=== PATIENT | female | born 1940 | race Caucasian/White ===

== ENCOUNTER 2017-10-12 13:59 | Outpatient (RCR) | payer MEDICARE, SELFPAY ==
[2017-10-12 15:08] LABS: International Normalized Ratio 2.4; Prothrombin Time (Protime)PT. 25.1 SECONDS (11.7-14.9)
== END 2017-10-12 14:15 | disposition home or self-care (01) ==
LOC: LAB 13:59
PROVIDERS: Family Provider Family Medicine; PCP Family Medicine; Visit Provider Internal Medicine Cardiovascular Disease
DX: I48.1 Persistent atrial fibrillation (principal); Z79.01 Long term (current) use of anticoagulants
CPT/HCPCS: 36415; 85610

== ENCOUNTER → 2017-10-26 15:27 | Outpatient (CLI) | payer MEDICARE, SELFPAY ==
--- NOTE | 2017-10-26 15:31 | RAD_ITS ---
STUDY: X-RAY - LEFT WRIST REASON FOR EXAM: Female, 77 years old. Pain TECHNIQUE: Three view(s) of the wrist were obtained. COMPARISON: None. FINDINGS: Bones: There are no acute osseous abnormalities. Joints: There is narrowing of the scapholunate joint. Soft tissues: The soft tissues are unremarkable. Foreign body: None RAD/Wrist min 3 Views IMPRESSION: No acute abnormalities are seen in the wrist. There are mild degenerative changes at the scapholunate joint. Electronically Signed: Katelyn Gastelum MD at 22:35 EST Tel Direct: [phone], Service support ,
[2017-10-26 18:17] LABS: Anion Gap 8 (5-15); BUN 22 mg/dL (7-18); BUN/Creat Ratio 28.9 RATIO (10-20); Chloride 105 mmol/L (98-107); Creatinine, Serum 0.76 mg/dL (0.55-1.02); EST Glomerular Filtration Rate 79 mL/min (>60); Est Glom Filt Rate - Afr Amer 95 mL/min (>60); Glucose 86 mg/dL (70-110); Potassium 3.7 mmol/L (3.5-5.1); Sodium Level 142 mmol/L (136-145)
== END ==
PROVIDERS: Family Provider Family Medicine; PCP Family Medicine; Visit Provider Family Medicine
DX: E87.6 Hypokalemia (principal); M25.532 Pain in left wrist
CPT/HCPCS: 36415; 73110; 80048

== ENCOUNTER 2017-11-20 15:44 | Outpatient (RCR) | payer MEDICARE, SELFPAY ==
[2017-11-20 16:53] LABS: International Normalized Ratio 2.8; Prothrombin Time (Protime)PT. 28.6 SECONDS (11.7-14.9)
== END 2017-11-20 16:00 | disposition home or self-care (01) ==
LOC: LAB 15:44
PROVIDERS: Family Provider Family Medicine; PCP Family Medicine; Visit Provider Internal Medicine Cardiovascular Disease
DX: I48.91 Unspecified atrial fibrillation (principal); Z79.01 Long term (current) use of anticoagulants
CPT/HCPCS: 36415; 85610

== ENCOUNTER → 2017-11-24 08:34 | Outpatient (CLI) | payer MEDICARE, SELFPAY ==
--- NOTE | 2017-11-24 08:40 | US_ITS ---
STUDY: SUPERFICIAL ULTRASOUND - LEFT WRIST REASON FOR EXAM: Female, 77 years old. Ganglion cyst TECHNIQUE: A superficial ultrasound was performed with real-time and static cardoza-scale imaging. COMPARISON: None. FINDINGS: There is a complex multi septated mass measuring 1.9 x 1.7 x 1.3 cm with internal and peripheral vascularity of indeterminate etiology.. This does not have the typical ultrasound appearance for a ganglion cyst. MRI would be helpful for further evaluation US/Ext Non Vasc Limited/Soft Tiss IMPRESSION: Complex mass in the left wrist measuring approximately 1.9 x 1.7 x 1.3 cm Electronically Signed: Jordan Tran MD at 17:08 EST , Service support ,
== END ==
PROVIDERS: Family Provider Family Medicine; PCP Family Medicine; Visit Provider Orthopaedic Surgery
DX: M67.40 Ganglion, unspecified site (principal)
CPT/HCPCS: 76882

== ENCOUNTER → 2017-12-12 13:15 | Outpatient (CLI) | payer MEDICARE, SELFPAY ==
--- NOTE | 2017-12-12 13:17 | MRI_ITS ---
STUDY: MRI LEFT WRIST WITHOUT CONTRAST REASON FOR EXAM: Left wrist pain, lump at skin marker. TECHNIQUE: Standardized fat and water weighted pulse sequences were obtained in all 3 orthogonal planes. COMPARISON: Radiographs 10/26/2017 and ultrasound 11/24/2017. FINDINGS: Normal visualized distal radius and ulna. Normal distal radioulnar articulation (DRUJ). There is a small central perforation of the radial aspect of the triangular fibrocartilage (inversion recovery coronal image 11). There is mild cystic change and bone edema of the proximal ulnar aspect of the lunate (inversion recovery coronal images 9, 10). Normal radiocarpal, intercarpal and midcarpal articulations. Normal pisotriquetral articulation. Normal visualized interosseous scapholunate ligament. Normal extensor tendons. Normal flexor tendons. Normal carpal tunnel with a normal median nerve. Normal carpometacarpal articulation of the thumb. Normal second through fifth carpometacarpal articulations. Normal visualized metacarpal bones. There is no discrete soft tissue mass or cyst corresponding to the skin marker at the palmar aspect of the wrist (T2 sagittal images 9-11; inversion recovery axial images 17-20). 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 No demonstrated soft tissue mass or cyst corresponding to the palmar skin marker. Electronically Signed: Cody Lopes MD at 15:37 EDT Tel , Service support ,
== END ==
PROVIDERS: Family Provider Family Medicine; PCP Family Medicine; Visit Provider Orthopaedic Surgery
DX: R22.32 Localized swelling, mass and lump, left upper limb (principal)
CPT/HCPCS: 73221

== ENCOUNTER 2017-12-25 14:33 | Outpatient (RCR) | payer MEDICARE, SELFPAY ==
[2017-12-25 15:19] LABS: International Normalized Ratio 2.7; Prothrombin Time (Protime)PT. 28.8 SECONDS (11.7-14.9)
== END 2017-12-25 15:00 | disposition home or self-care (01) ==
LOC: LAB 14:33
PROVIDERS: Family Provider Family Medicine; PCP Family Medicine; Visit Provider Internal Medicine Cardiovascular Disease
DX: I48.91 Unspecified atrial fibrillation (principal); Z79.01 Long term (current) use of anticoagulants
CPT/HCPCS: 36415; 85610

== ENCOUNTER 2018-01-29 14:09 | Outpatient (RCR) | payer MEDICARE, SELFPAY ==
[2018-01-29 15:26] LABS: Prothrombin Time (Protime)PT. 40.5 SECONDS (11.7-14.9)
[2018-01-29 17:06] LABS: International Normalized Ratio 4.2
== END 2018-01-29 15:00 | disposition home or self-care (01) ==
LOC: LAB 14:09
PROVIDERS: Family Provider Family Medicine; PCP Family Medicine; Visit Provider Internal Medicine Cardiovascular Disease
DX: I48.91 Unspecified atrial fibrillation (principal); Z79.01 Long term (current) use of anticoagulants
CPT/HCPCS: 36415; 85610

== ENCOUNTER 2018-02-09 16:05 | Outpatient (RCR) | payer MEDICARE, SELFPAY ==
[2018-02-02 14:37] LABS: International Normalized Ratio 1.4; Prothrombin Time (Protime)PT. 17.6 SECONDS (11.7-14.9)
[2018-02-09 17:48] LABS: International Normalized Ratio 1.9; Prothrombin Time (Protime)PT. 22.2 SECONDS (11.7-14.9)
== END 2018-02-09 17:00 | disposition home or self-care (01) ==
LOC: LAB 16:05
PROVIDERS: Family Provider Family Medicine; PCP Family Medicine; Visit Provider Internal Medicine Cardiovascular Disease
DX: I48.91 Unspecified atrial fibrillation (principal); Z79.01 Long term (current) use of anticoagulants
CPT/HCPCS: 36415; 85610

== ENCOUNTER 2018-03-16 13:09 | Outpatient (RCR) | payer MEDICARE, SELFPAY ==
[2018-02-23 13:52] LABS: International Normalized Ratio 2.1; Prothrombin Time (Protime)PT. 23.2 SECONDS (11.7-14.9)
[2018-03-16 13:49] LABS: Prothrombin Time (Protime)PT. 22.7 SECONDS (11.7-14.9)
== END 2018-03-16 14:00 | disposition home or self-care (01) ==
LOC: LAB 13:09
PROVIDERS: Family Provider Family Medicine; PCP Family Medicine; Visit Provider Internal Medicine Cardiovascular Disease
DX: I48.91 Unspecified atrial fibrillation (principal); Z79.01 Long term (current) use of anticoagulants
CPT/HCPCS: 36415; 85610

== ENCOUNTER 2018-04-06 13:17 | Outpatient (RCR) | payer MEDICARE, SELFPAY ==
[2018-04-06 13:48] LABS: International Normalized Ratio 2.4; Prothrombin Time (Protime)PT. 26.5 SECONDS (11.7-14.9)
== END 2018-04-06 15:00 | disposition home or self-care (01) ==
LOC: LAB 13:17
PROVIDERS: Family Provider Family Medicine; PCP Family Medicine; Visit Provider Internal Medicine Cardiovascular Disease
DX: I48.91 Unspecified atrial fibrillation (principal); Z79.01 Long term (current) use of anticoagulants
CPT/HCPCS: 36415; 85610

== ENCOUNTER 2018-05-11 13:37 | Outpatient (RCR) | payer MEDICARE, SELFPAY ==
[2018-05-11 15:01] LABS: International Normalized Ratio 2.3; Prothrombin Time (Protime)PT. 25.5 SECONDS (11.7-14.9)
== END 2018-05-11 15:00 | disposition home or self-care (01) ==
LOC: LAB 13:37
PROVIDERS: Family Provider Family Medicine; PCP Family Medicine; Visit Provider Internal Medicine Cardiovascular Disease
DX: I48.91 Unspecified atrial fibrillation (principal); Z79.01 Long term (current) use of anticoagulants
CPT/HCPCS: 36415; 85610

== ENCOUNTER → 2018-06-14 14:30 | Outpatient (CLI) | payer MEDICARE, SELFPAY ==
--- NOTE | 2018-06-14 14:35 | RAD_ITS ---
STUDY: X-RAY CHEST REASON FOR EXAM: Female, 78 years old. Chest pain TECHNIQUE: PA and lateral views of the chest. COMPARISON: None. FINDINGS: There is hyperinflation of the lungs consistent with chronic obstructive lung disease (COPD). Lungs are clear. There is no demonstrated pleural abnormality. There is borderline cardiomegaly. Normal mediastinum and rudy. Normal visualized pulmonary arteries. Normal visualized aortic arch and descending thoracic aorta. Normal visualized thoracic spine. Normal visualized ribs, clavicles, and shoulders. There is no demonstrated abnormality of the visualized soft tissue structures of the upper abdomen. RAD/Chest PA and Lateral IMPRESSION: COPD. Borderline cardiomegaly. No acute airspace disease. Electronically Signed: Krishna Arce DO at 12:00 EDT Tel , Service support ,
== END ==
PROVIDERS: Family Provider Family Medicine; PCP Family Medicine; Visit Provider Internal Medicine Cardiovascular Disease
DX: I10 Essential (primary) hypertension (principal)
CPT/HCPCS: 71046

== ENCOUNTER 2018-06-14 14:54 | Outpatient (RCR) | payer MEDICARE, SELFPAY ==
[2018-06-14 15:45] LABS: International Normalized Ratio 2.5; Prothrombin Time (Protime)PT. 27.4 SECONDS (11.7-14.9)
== END 2018-06-14 16:00 | disposition home or self-care (01) ==
LOC: LAB 14:54
PROVIDERS: Family Provider Family Medicine; PCP Family Medicine; Visit Provider Internal Medicine Cardiovascular Disease
DX: I48.91 Unspecified atrial fibrillation (principal); Z79.01 Long term (current) use of anticoagulants; I10 Essential (primary) hypertension
CPT/HCPCS: 36415; 71046; 85610

== ENCOUNTER → 2018-06-20 13:46 | Outpatient (CLI) | payer MEDICARE, SELFPAY ==
--- NOTE | 2018-06-20 13:52 | ECHOD_ITS ---
Reason For Study: Afib, Aflutter Procedure This was a 2D Doppler, Color Flow transthoracic echocardiogram. Exam performed in department. Left Ventricle Normal LV size. Left ventricular systolic function is normal. The estimated ejection fraction is 60 %. Unable to assess diastolic dysfunction due to arrhythmia. No regional wall motion abnormalities noted. Right Ventricle Normal RV size. Normal systolic function. Atria The left atrium is moderately enlarged. Normal right atrium. Mitral Valve Normal mitral valve. Mild (1+) eccentric mitral valve insufficiency. Tricuspid Valve Normal tricuspid valve. Mild to moderate (1-2+) tricuspid valve insufficiency. Pulmonary artery systolic pressure is 48 mmHg. Aortic Valve Trisinus/trileaflet aortic valve. Mild (1+) eccentric aortic valve insufficiency. Pulmonic Valve Normal pulmonic valve. Great Vessels Mildly dilated aortic root. The pulmonary artery is normal size. Normal inferior vena cava. Pericardium/Pleural No pericardial effusion. MMode/2D Measurements & Calculations LVIDd: 4.2 cm IVSd: 1.1 cm Ao root diam: 3.4 cm LVIDs: 3.0 cm LVPWd: 0.85 cm LA dimension: 4.1 cm RVDd: 3.2 cm FS: 28.7 % LAV(MOD-bp): 62.0 ml LVAd ap4: 23.7 cm2 SV(MOD-sp4): 37.8 ml LAV(MOD-bp) Indexed: 34.2 ml/m2 EDV(MOD-sp4): 64.1 ml LAV(MOD-sp2): 77.4 ml EDV(sp4-el): 64.9 ml LAV(MOD-sp4): 43.2 ml LVAs ap4: 13.8 cm2 ESV(MOD-sp4): 26.3 ml ESV(sp4-el): 24.9 ml EF(MOD-sp4): 58.9 % EF(sp4-el): 61.6 % SV(sp4-el): 40.0 ml LA A4 area: 18.5 cm2 RA A4 area: 26.2 cm2 Doppler Measurements & Calculations MV E max chemo: 84.0 cm/sec Ao V2 max: 102.2 cm/sec AI max chemo: 429.1 cm/sec Ao max P.2 mmHg AI max P.6 mmHg Ao V2 mean: 78.7 cm/sec AI dec slope: 156.1 cm/sec2 Ao mean P.7 mmHg AI P1/2t: 805.1 msec Ao V2 VTI: 21.4 cm LV V1 max: 81.4 cm/sec PA V2 max: 78.3 cm/sec TR max chemo: 331.6 cm/sec LV V1 max P.7 mmHg TR max P.0 mmHg Interpretation Summary Normal LV size. Left ventricular systolic function is normal. The estimated ejection fraction is 60 %. Unable to assess diastolic dysfunction due to arrhythmia. The left atrium is moderately enlarged. Mildly dilated aortic root. Mild (1+) eccentric mitral valve insufficiency. Mild to moderate (1-2+) tricuspid valve insufficiency. Ordering Physician: Jef Whaley Referring Physician: Gabino Reyes Performed By: Janelle Whalen RDCS, RVT
== END ==
PROVIDERS: Family Provider Family Medicine; PCP Family Medicine; Referring Provider Internal Medicine Cardiovascular Disease; Visit Provider Internal Medicine Cardiovascular Disease
DX: I34.0 Nonrheumatic mitral (valve) insufficiency (principal)
CPT/HCPCS: 93306

== ENCOUNTER 2018-07-19 15:33 | Outpatient (RCR) | payer MEDICARE, SELFPAY ==
[2018-07-19 17:47] LABS: International Normalized Ratio 2.4; Prothrombin Time (Protime)PT. 26.5 SECONDS (11.7-14.9)
== END 2018-07-19 17:00 | disposition home or self-care (01) ==
LOC: LAB 15:33
PROVIDERS: Family Provider Family Medicine; PCP Family Medicine; Referring Provider Internal Medicine Cardiovascular Disease; Visit Provider Internal Medicine Cardiovascular Disease
DX: I48.91 Unspecified atrial fibrillation (principal); Z79.01 Long term (current) use of anticoagulants
CPT/HCPCS: 36415; 85610

== ENCOUNTER 2018-08-31 13:21 | Outpatient (RCR) | payer MEDICARE, SELFPAY | END 2018-08-31 14:00 | disposition home or self-care (01) | LOC: LAB 13:21 | PROVIDERS: Family Provider Family Medicine; PCP Family Medicine; Referring Provider Internal Medicine Cardiovascular Disease; Visit Provider Internal Medicine Cardiovascular Disease | DX: I48.91 Unspecified atrial fibrillation (principal); Z79.01 Long term (current) use of anticoagulants | CPT/HCPCS: 36415; 85610 ==

== ENCOUNTER 2018-10-05 14:58 | Outpatient (RCR) | payer MEDICARE, SELFPAY ==
[2018-10-05 17:22] LABS: Prothrombin Time (Protime)PT. 22.8 SECONDS (11.7-14.9)
== END 2018-10-05 15:00 | disposition home or self-care (01) ==
LOC: LAB 14:58
PROVIDERS: Family Provider Family Medicine; PCP Family Medicine; Referring Provider Internal Medicine Cardiovascular Disease; Visit Provider Internal Medicine Cardiovascular Disease
DX: I48.91 Unspecified atrial fibrillation (principal); Z79.01 Long term (current) use of anticoagulants
CPT/HCPCS: 36415; 85610

== ENCOUNTER 2018-11-16 15:21 | Outpatient (RCR) | payer MEDICARE, SELFPAY ==
[2018-11-16 16:14] LABS: International Normalized Ratio 2.2; Prothrombin Time (Protime)PT. 24.4 SECONDS (11.7-14.9)
== END 2018-11-22 14:48 | disposition home or self-care (01) ==
LOC: LAB 15:21
PROVIDERS: Family Provider Family Medicine; PCP Family Medicine; Referring Provider Internal Medicine Cardiovascular Disease; Visit Provider Internal Medicine Cardiovascular Disease
DX: I48.91 Unspecified atrial fibrillation (principal); Z79.01 Long term (current) use of anticoagulants
CPT/HCPCS: 36415; 85610

== ENCOUNTER 2018-12-18 11:00 | Outpatient (RCR) | payer MEDICARE, SELFPAY ==
[2018-12-18 10:24] VITALS: BMI 28.6
[2018-12-18 12:33] LABS: International Normalized Ratio 2.1; Prothrombin Time (Protime)PT. 23.8 SECONDS (11.7-14.9)
== END 2018-12-18 12:00 | disposition home or self-care (01) ==
LOC: LAB 11:00
PROVIDERS: Family Provider Family Medicine; PCP Family Medicine; Referring Provider Internal Medicine Cardiovascular Disease; Visit Provider Internal Medicine Cardiovascular Disease
DX: I48.91 Unspecified atrial fibrillation (principal); Z79.01 Long term (current) use of anticoagulants
CPT/HCPCS: 36415; 85610

== ENCOUNTER 2019-01-25 13:41 | Outpatient (RCR) | payer MEDICARE, SELFPAY ==
[2019-01-25 14:15] LABS: International Normalized Ratio 2.5; Prothrombin Time (Protime)PT. 27.2 SECONDS (11.7-14.9)
== END 2019-01-25 14:41 | disposition home or self-care (01) ==
LOC: LAB 13:41
PROVIDERS: Family Provider Family Medicine; PCP Family Medicine; Referring Provider Internal Medicine Cardiovascular Disease; Visit Provider Internal Medicine Cardiovascular Disease
DX: I48.91 Unspecified atrial fibrillation (principal); Z79.01 Long term (current) use of anticoagulants
CPT/HCPCS: 36415; 85610

== ENCOUNTER → 2019-02-07 | Outpatient (CLI) | payer MEDICARE, SELFPAY ==
[2019-02-07 15:04] LABS: ALB/GLOB Ratio 1.2 RATIO (0.9-2.4); AST(SGOT) 36 U/L (15-37); Alanine Aminotransfer ALT/SGPT 25 U/L (13-56); Albumin, Serum 3.9 g/dL (3.2-5.0); Alkaline Phosphatase 96 U/L (45-117); Anion Gap 7 (5-15); BUN 22 mg/dL (7-18); BUN/Creat Ratio 23.5 RATIO (10-20); Calcium,Total 8.8 mg/dL (8.5-10.1); Chloride 103 mmol/L (98-107); Creatinine, Serum 0.94 mg/dL (0.55-1.02); EST Glomerular Filtration Rate 62 mL/min (>60); Est Glom Filt Rate - Afr Amer 75 mL/min (>60); Globulin 3.3 g/dL (2.2-4.2); Glucose 78 mg/dL (74-106); Potassium 4.2 mmol/L (3.5-5.1); Protein, Total 7.2 g/dL (6.4-8.2); Sodium Level 140 mmol/L (136-145)
== END | disposition home or self-care (01) ==
LOC: MFPLAB 12:24
PROVIDERS: Family Provider Family Medicine; PCP Family Medicine; Referring Provider Family Medicine; Visit Provider Family Medicine
DX: B35.1 Tinea unguium (principal)
CPT/HCPCS: 36415; 80053

== ENCOUNTER 2019-03-07 16:22 | Outpatient (RCR) | payer MEDICARE, SELFPAY ==
[2019-03-07 17:23] LABS: International Normalized Ratio 2.1; Prothrombin Time (Protime)PT. 23.6 SECONDS (11.7-14.9)
== END 2019-03-07 17:00 | disposition home or self-care (01) ==
LOC: LAB 16:22
PROVIDERS: Family Provider Family Medicine; PCP Family Medicine; Referring Provider Internal Medicine Cardiovascular Disease; Visit Provider Internal Medicine Cardiovascular Disease
DX: I48.91 Unspecified atrial fibrillation (principal); Z79.01 Long term (current) use of anticoagulants
CPT/HCPCS: 36415; 85610

== ENCOUNTER 2019-04-18 14:36 | Outpatient (RCR) | payer MEDICARE, SELFPAY ==
[2019-04-18 16:15] LABS: Prothrombin Time (Protime)PT. 31.2 SECONDS (11.7-14.9)
== END 2019-04-18 16:21 | disposition home or self-care (01) ==
LOC: LAB 14:36
PROVIDERS: Family Provider Family Medicine; PCP Family Medicine; Referring Provider Internal Medicine Cardiovascular Disease; Visit Provider Internal Medicine Cardiovascular Disease
DX: I48.91 Unspecified atrial fibrillation (principal); Z79.01 Long term (current) use of anticoagulants
CPT/HCPCS: 36415; 85610

== ENCOUNTER 2019-05-23 15:46 | Outpatient (RCR) | payer MEDICARE, SELFPAY ==
[2019-05-23 17:17] LABS: International Normalized Ratio 2.6; Prothrombin Time (Protime)PT. 28.2 SECONDS (11.7-14.9)
== END 2019-05-23 17:00 | disposition home or self-care (01) ==
LOC: LAB 15:46
PROVIDERS: Family Provider Family Medicine; PCP Family Medicine; Referring Provider Internal Medicine Cardiovascular Disease; Visit Provider Internal Medicine Cardiovascular Disease
DX: I48.91 Unspecified atrial fibrillation (principal); Z79.01 Long term (current) use of anticoagulants
CPT/HCPCS: 36415; 85610

== ENCOUNTER 2019-06-27 14:39 | Outpatient (RCR) | payer MEDICARE, SELFPAY ==
[2019-06-27 16:27] LABS: International Normalized Ratio 2.5; Prothrombin Time (Protime)PT. 27.4 SECONDS (11.7-14.9)
== END 2019-06-27 18:00 | disposition home or self-care (01) ==
LOC: LAB 14:39
PROVIDERS: Family Provider Family Medicine; PCP Family Medicine; Referring Provider Internal Medicine Cardiovascular Disease; Visit Provider Internal Medicine Cardiovascular Disease
DX: I48.91 Unspecified atrial fibrillation (principal); Z79.01 Long term (current) use of anticoagulants
CPT/HCPCS: 36415; 85610

== ENCOUNTER 2019-08-09 14:04 | Outpatient (RCR) | payer MEDICARE, SELFPAY ==
[2019-07-26 13:16] VITALS: BMI 28.6
[2019-08-09 14:45] LABS: International Normalized Ratio 2.4; Prothrombin Time (Protime)PT. 26.1 SECONDS (11.7-14.9)
== END 2019-08-09 18:00 | disposition home or self-care (01) ==
LOC: LAB 14:04
PROVIDERS: Family Provider Family Medicine; PCP Family Medicine; Referring Provider Internal Medicine Cardiovascular Disease; Visit Provider Internal Medicine Cardiovascular Disease
DX: I48.91 Unspecified atrial fibrillation (principal); Z79.01 Long term (current) use of anticoagulants
CPT/HCPCS: 36415; 85610

== ENCOUNTER → 2019-08-28 15:14 | Outpatient (CLI) | payer MEDICARE, SELFPAY ==
[2019-07-26 13:16] VITALS: BMI 28.6
== END ==
PROVIDERS: Visit Provider Obstetrics & Gynecology
DX: N76.4 Abscess of vulva (principal)
CPT/HCPCS: 87070; 87077; 87186; 87205

== ENCOUNTER 2019-09-23 14:29 | Outpatient (RCR) | payer MEDICARE, SELFPAY ==
[2019-07-26 13:16] VITALS: BMI 28.6
[2019-09-23 16:35] LABS: International Normalized Ratio 1.9; Prothrombin Time (Protime)PT. 21.6 SECONDS (11.7-14.9)
== END 2019-09-23 18:00 | disposition home or self-care (01) ==
LOC: LAB 14:29
PROVIDERS: Family Provider Family Medicine; PCP Family Medicine; Referring Provider Internal Medicine Cardiovascular Disease; Visit Provider Internal Medicine Cardiovascular Disease
DX: I48.91 Unspecified atrial fibrillation (principal); Z79.01 Long term (current) use of anticoagulants
CPT/HCPCS: 36415; 85610

== ENCOUNTER 2019-10-16 15:11 | Outpatient (RCR) | payer MEDICARE, SELFPAY ==
[2019-07-26 13:16] VITALS: BMI 28.6
[2019-10-16 16:53] LABS: International Normalized Ratio 1.9; Prothrombin Time (Protime)PT. 21.4 SECONDS (11.7-14.9)
== END 2019-10-16 18:00 | disposition home or self-care (01) ==
LOC: LAB 15:11
PROVIDERS: Family Provider Family Medicine; PCP Family Medicine; Referring Provider Internal Medicine Cardiovascular Disease; Visit Provider Internal Medicine Cardiovascular Disease
DX: I48.91 Unspecified atrial fibrillation (principal); Z79.01 Long term (current) use of anticoagulants
CPT/HCPCS: 36415; 85610

== ENCOUNTER 2019-11-15 14:22 | Outpatient (RCR) | payer MEDICARE, SELFPAY ==
[2019-07-26 13:16] VITALS: BMI 28.6
[2019-11-15 14:40] LABS: Prothrombin Time (Protime)PT. 22.2 SECONDS (11.7-14.9)
== END 2019-11-15 18:00 | disposition home or self-care (01) ==
LOC: LAB 14:22
PROVIDERS: Family Provider Family Medicine; PCP Family Medicine; Referring Provider Internal Medicine Cardiovascular Disease; Visit Provider Internal Medicine Cardiovascular Disease
DX: I48.91 Unspecified atrial fibrillation (principal); Z79.01 Long term (current) use of anticoagulants
CPT/HCPCS: 36415; 85610

== ENCOUNTER 2019-12-20 14:46 | Outpatient (RCR) | payer MEDICARE, SELFPAY ==
[2019-07-26 13:16] VITALS: BMI 28.6
[2019-12-20 16:13] LABS: International Normalized Ratio 2.1; Prothrombin Time (Protime)PT. 23.8 SECONDS (11.7-14.9)
== END 2019-12-20 18:00 | disposition home or self-care (01) ==
LOC: LAB 14:46
PROVIDERS: Family Provider Family Medicine; PCP Family Medicine; Referring Provider Internal Medicine Cardiovascular Disease; Visit Provider Internal Medicine Cardiovascular Disease
DX: I48.91 Unspecified atrial fibrillation (principal); Z79.01 Long term (current) use of anticoagulants
CPT/HCPCS: 36415; 85610

== ENCOUNTER 2020-01-23 15:57 | Outpatient (RCR) | payer MEDICARE, SELFPAY ==
[2019-07-26 13:16] VITALS: BMI 28.6
[2020-01-23 17:38] LABS: International Normalized Ratio 2.4; Prothrombin Time (Protime)PT. 25.3 SECONDS (11.7-14.9)
== END 2020-01-23 18:00 | disposition home or self-care (01) ==
LOC: LAB 15:57
PROVIDERS: Family Provider Family Medicine; PCP Family Medicine; Referring Provider Internal Medicine Cardiovascular Disease; Visit Provider Internal Medicine Cardiovascular Disease
DX: I48.91 Unspecified atrial fibrillation (principal); Z79.01 Long term (current) use of anticoagulants
CPT/HCPCS: 36415; 85610

== ENCOUNTER 2020-02-28 16:04 | Outpatient (RCR) | payer MEDICARE, SELFPAY ==
[2019-07-26 13:16] VITALS: BMI 28.6
[2020-02-04 12:44] VITALS: BMI 29.1
[2020-02-28 17:29] LABS: International Normalized Ratio 2.4; Prothrombin Time (Protime)PT. 25.3 SECONDS (11.7-14.9)
== END 2020-02-28 18:00 | disposition home or self-care (01) ==
LOC: LAB 16:04
PROVIDERS: Family Provider Family Medicine; PCP Family Medicine; Referring Provider Internal Medicine Cardiovascular Disease; Visit Provider Internal Medicine Cardiovascular Disease
DX: I48.19 Other persistent atrial fibrillation (principal); Z79.01 Long term (current) use of anticoagulants
CPT/HCPCS: 85610

== ENCOUNTER 2020-04-02 15:44 | Outpatient (RCR) | payer MEDICARE, SELFPAY ==
[2020-02-04 12:44] VITALS: BMI 29.1
[2020-04-02 16:41] LABS: International Normalized Ratio 2.3; Prothrombin Time (Protime)PT. 24.5 SECONDS (11.7-14.9)
== END 2020-04-02 18:00 | disposition home or self-care (01) ==
LOC: LAB 15:44
PROVIDERS: Family Provider Family Medicine; PCP Family Medicine; Referring Provider Internal Medicine Cardiovascular Disease; Visit Provider Internal Medicine Cardiovascular Disease
DX: I48.19 Other persistent atrial fibrillation (principal); Z79.01 Long term (current) use of anticoagulants
CPT/HCPCS: 36415; 85610

== ENCOUNTER 2020-05-15 15:29 | Outpatient (RCR) | payer MEDICARE, SELFPAY ==
[2020-02-04 12:44] VITALS: BMI 29.1
[2020-05-15 16:23] LABS: International Normalized Ratio 3.3; Prothrombin Time (Protime)PT. 32.9 SECONDS (11.7-14.9)
== END 2020-05-25 18:00 | disposition home or self-care (01) ==
LOC: LAB 15:29
PROVIDERS: Family Provider Family Medicine; PCP Family Medicine; Referring Provider Internal Medicine Cardiovascular Disease; Visit Provider Internal Medicine Cardiovascular Disease
DX: I48.19 Other persistent atrial fibrillation (principal); Z79.01 Long term (current) use of anticoagulants; I10 Essential (primary) hypertension
CPT/HCPCS: 36415; 85610

== ENCOUNTER 2020-05-24 09:32 | Emergency (ER) | payer MEDICARE, SELFPAY ==
[2020-02-04 12:44] VITALS: BMI 29.1
[2020-05-24] VITALS (9 sets, daily range): BP systolic 157–177; BP diastolic 80–109; PULSE 70–90; RESP 15–20; TEMP 36; O2SAT 97–99; BMI 31.6
--- NOTE | 2020-05-24 09:35 | CT_ITS ---
STUDY: CT BRAIN WITHOUT CONTRAST REASON FOR EXAM: Female, 80 years old. FACIAL DROOP-LT SIDE, AFIB ON COUMADIN, CHF, HTN RADIATION DOSAGE (If Supplied By Facility): CTDIvol = ( 44.99 ) mGy, DLP = ( 779.24 ) mGycm TECHNIQUE: Transaxial CT imaging of the brain was performed without administration of intravenous contrast material. Individualized dose optimization techniques were used for this CT. COMPARISON: No relevant priors. FINDINGS: Normal soft tissue structures. Normal calvarium. Normal size ventricles and extra-axial spaces for the patient''s age. Normal white matter tracts of the cerebral hemispheres. Normal basal ganglia and thalami. Normal brainstem. Normal cerebellum. There is no intracranial hemorrhage. There are no findings of an acute ischemic infarction. Normal visualized paranasal sinuses. CT/Brain/Head without Contrast IMPRESSION: No evidence of acute intracranial bleed, mass or ischemia. If high clinical suspicion recommend MRI imaging to exclude occult CT findings. N.B. : The above information has been verbally conveyed by Vinay Cullen DO to Dr. Kassandra MD, on 05/24/2020 10:12:52 (ET). Electronically Signed: Vinay Cullen DO at 10:14 EDT , Service support ,
--- NOTE | 2020-05-24 09:35 | EKG12_ITS ---
Test Reason : NEURO Blood Pressure : / mmHG Vent. Rate : 086 BPM Atrial Rate : 250 BPM P-R Int : 000 ms QRS Dur : 098 ms QT Int : 408 ms P-R-T Axes : 000 -17 024 degrees QTc Int : 488 ms Atrial fibrillation Incomplete right bundle branch block Abnormal ECG Confirmed by JENNI DESIR, HUMBERTO ([id number]), metropolitan editor NILTON YU ([id number]) on 05/28/2020 11:32:14 AM Referred By: CL Confirmed By:HUMBERTO ARTEAGA MD
--- NOTE | 2020-05-24 09:35 | RAD_ITS ---
STUDY: X-RAY CHEST REASON FOR EXAM: Female, 80 years old. STROKE SX TECHNIQUE: Single AP portable view of the chest. COMPARISON: 06/14/2018 FINDINGS: The lungs are clear and expanded. There is no demonstrated pleural abnormality. There is moderate cardiac enlargement. Normal mediastinum and rudy. Normal visualized pulmonary arteries. Normal visualized aortic arch and descending thoracic aorta. Normal visualized thoracic spine. Normal visualized ribs, clavicles, and shoulders. There is no demonstrated abnormality of the visualized soft tissue structures of the upper abdomen. RAD/Chest 1 View IMPRESSION: No active disease. Electronically Signed: Pedro Velázquez MD at 10:35 EDT Tel , Service support ,
--- NOTE | 2020-05-24 09:36 | CT_ITS ---
We are attempting to reach an attending provider to discuss findings. An addendum with communication details will be sent when the communication is complete. STUDY: CTA HEAD AND NECK WITH CONTRAST REASON FOR EXAM: Female, 80 years old. CVA SUSPECTED, LT FACIAL DROOP,N/T,HX- HTN, CHF, A-FIB RADIATION DOSAGE (If Supplied By Facility): CTDIvol = ( 24.68 ) mGy, DLP = ( 573.98 ) mGycm TECHNIQUE: CT angiography was performed with a multi-detector CT scanner. Data acquisition was obtained from the skull base through the vertex following intravenous administration of IV 100mL [id number]-[id number]. MIP images were reconstructed from the axial data set. Post-processing of the angiographic images was performed, with multiplanar reformation and 3D reconstruction. Individualized dose optimization techniques were used for this CT. COMPARISON: No relevant priors. FINDINGS: Normal bilateral petrous carotid arteries. Normal right cavernous carotid artery with a normal supraclinoid bifurcation. Normal left cavernous carotid artery with a normal supraclinoid bifurcation. There is hypoplastic development of the right A1 segment of the anterior cerebral arteries with an atretic but intact artery. Normal left A1 segments of the anterior cerebral artery. There is non-visualization of the anterior communicating artery (ACOM). Hypoplastic remainder of the right anterior cerebral artery. Normal right M1 and M2 segments of the middle cerebral arteries, with a normal M1 bifurcation. Normal left M1 and M2 segments of the middle cerebral arteries, with a normal M1 bifurcation. Normal right posterior communicating artery (PCOM). Normal left posterior communicating artery (PCOM). There is a small atretic right vertebral artery with a dominant left vertebral artery. Normal basilar artery with a normal basilar bifurcation. The visualized bilateral superior cerebellar (SCA) arteries are normal. Normal bilateral P1, P2 and visualized P3 segments of the posterior cerebral arteries. There is no demonstrated aneurysm of the alutiiq of [place]. There is no demonstrated abnormality of the visualized brain. AORTIC ARCH: Normal visualized aortic arch. Normal origins of the brachiocephalic, left common carotid, and left subclavian arteries. RIGHT CAROTID ARTERIES: Normal right common carotid artery (CCA). Normal right common carotid bulb. Normal origin of the right internal carotid (ICA) artery without a hemodynamically significant stenosis. Normal visualized cervical portion of the right internal carotid artery. Normal origin of the right external carotid artery (ECA). LEFT CAROTID ARTERIES: Normal left common carotid artery (CCA). Normal left common carotid bulb. Normal origin of the left internal carotid (ICA) artery without a hemodynamically significant stenosis. Normal visualized cervical portion of the left internal carotid artery. Normal origin of the left external carotid artery (ECA). VERTEBRAL ARTERIES: There is enhancement within the bilateral vertebral arteries with a small right vertebral artery, and a dominant left vertebral artery. CT/CTA Head AND Neck W/ Contrast IMPRESSION: Normal CTA Head and neck with contrast. Electronically Signed: Pedro Velázquez MD at 10:28 EDT Tel , Service support ,
[2020-05-24 09:48] LABS: Absolute Neutrophil Count 3.4 X10^3/uL (2.0-7.7); Basophil# 0.08 X10^3/uL; Basophil% 1.4 % (0-1); Eosinophil# 0.14 X10^3/uL; Eosinophils% 2.4 % (0-5); Hematocrit 49.5 % (37-47); Hemoglobin 15.7 g/dL (12.0-15.0); Lymphocyte % 23.9 % (19-41); Mean Corp Hgb Conc 31.7 g/dL (32-36); Mean Corpuscular Hgb 30.1 pg (27.0-32.0); Mean Corpuscular Volume 94.8 fL (81-99); Mean Platelet Vol. 9.1 fl (6.2-12.0); Monocyte# 0.85 X10^3/uL; Monocyte% 14.5 % (0-10); NRBC Flagged by Analyzer 0 % (0-5); Neutrophil # 3.39 X10^3/uL (2.7-7.7); Neutrophil % 57.8 % (47-70); Platelet Count 171 K/mm3 (150-450); RBC Distribution Width CV 12.8 % (11.6-14.6); RBC Distribution Width SD 44.7 fl (35.1-43.9); Red Blood Count 5.22 M/mm3 (4.2-5.4); White Blood Count 5.9 K/mm3 (4.4-11.0)
[2020-05-24 09:57] LABS: International Normalized Ratio 1.9; Partial Thromboplast Time 34.2 Seconds (24.1-36.2); Prothrombin Time (Protime)PT. 21.4 SECONDS (11.7-14.9)
[2020-05-24 10:04] LABS: Anion Gap 5 (5-15); BUN 24 mg/dL (7-18); BUN/Creat Ratio 25.9 RATIO (10-20); Calcium,Total 8.9 mg/dL (8.5-10.1); Chloride 106 mmol/L (98-107); Creatinine, Serum 0.93 mg/dL (0.55-1.02); EST Glomerular Filtration Rate 62 mL/min (>60); Est Glom Filt Rate - Afr Amer 75 mL/min (>60); Estimated Creatinine Clearance 44.86 ml/min; Glucose 79 mg/dL (74-106); Potassium 3.1 mmol/L (3.5-5.1); Sodium Level 142 mmol/L (136-145)
--- NOTE | 2020-05-24 10:18 | ED.RN ---
1005 Awaiting [facility] MD after pt returned from CT and 2nd call placed by RN
--- NOTE | 2020-05-24 10:46 | MRI_ITS ---
STUDY: MRI BRAIN WITHOUT CONTRAST REASON FOR EXAM: Female, 80 years old. LEFT facial droop this morning, Hx of a-fib TECHNIQUE: Standardized multiplanar fat and water weighted pulse sequences were obtained. COMPARISON: None. FINDINGS: There is mild cerebral atrophy with widening of the extra-axial spaces and ventricular dilatation. There are a limited number of small white matter hyperintensities, distributed throughout the deep white matter tracts of the cerebral hemispheres, consistent with mild chronic white matter ischemic changes. There is no evidence for recent intracranial ischemia or other cause of cytotoxic edema on diffusion weighted imaging (DWI). Normal T2* images of the brain without demonstrated susceptibility artifact. There is no demonstrated hemosiderin stain. Normal bilateral basal ganglia. Normal thalami. There is no extra-axial fluid accumulation. Normal flow voids within the major intracranial circulation suggesting patency by spin echo criteria. Normal sella turcica, pituitary gland, infundibular stalk, optic chiasm and hypothalamus. Normal tectal plate and pineal gland. Normal midbrain, genaro and medulla. Normal cerebellum. Normal basal cisterns. 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 Normal bilateral internal auditory canals. There are bilateral ocular lens implants with otherwise normal intraorbital contents. Normal visualized paranasal sinuses. Normal calvarium and skull base. Normal visualized soft tissue structures. Normal visualized upper cervical spine. MRI/Brain without Contrast IMPRESSION: Involutional changes of the brain, as described above. No acute infarct. Electronically Signed: Pedro Velázquez MD at 12:49 EDT Tel , Service support ,
[2020-05-24] MEDS: Aspirin 81 MG TAB.CHEW 324 MG PO (10:52)
--- NOTE | 2020-05-24 12:08 | ED.DCSUM_ITS ---
History of Present Illness Chief Complaint: Neuro S/Sx Informant: Patient Narrative: 80-year-old female with past medical history of atrial fibrillation and hypertension presents with concern for left-sided facial droop. States that approximately 10 hours ago she was brushing her teeth before bed and had no facial droop. Upon awakening this morning she had left-sided facial droop. States that she has some slight tingling in the side of her face. Otherwise has no other complaints. Denies any chest pain, shortness of breath, nausea, vomiting, vision change, neck pain, head injury, fever, chills, urinary symptoms. Patient is on warfarin for her Eliquis which she has been compliant with as of late. Past Medical History - Allergies and Home Meds Allergies/Adverse Reactions: Allergies No Known Allergies Allergy (Verified 02/04/20 13:23) Prior records reviewed: Yes Past Medical History: - - HTN and atrial fibrillation. Surgical History: - - laser eye surgery Smoking Status: Never smoker Alcohol: None Drugs: None - Family History Maternal Family History: Family History (Last Reviewed 07/26/19 @ 13:[address] Jef Whaley MD) Mother Congestive heart failure Father angina Asthma Family History: Reports: No pertinent history Review of Systems General: Denies: Chills, Fever, Sweats Eyes: Denies: Visual changes - bilaterally, Diplopia ENT: Denies: Rhinorrhea, Sore throat Cardiovascular: Denies: Chest pain, Palpitations Respiratory: Denies: Dyspnea, Cough, Dyspnea on exertion Gastrointestinal: Denies: Abdominal pain, Nausea, Vomiting, Diarrhea, Melena, Hematochezia Genitourinary: Denies: Dysuria, Hematuria, Frequency Musculoskeletal: Denies: Back pain, Extremity Pain Skin: Denies: Rash, Wounds Neurological: Reports: - - Facial droop.. Denies: Headache, Weakness, Numbness Physical Exam Vital Signs/Narrative: Vital Signs Temp Pulse Resp BP Pulse Ox 05/24/20 10:30 76 20 H 159/85 H 99 05/24/20 10:05 74 20 H 157/105 H 98 05/24/20 09:35 75 20 H 177/96 H 99 05/24/20 09:33 96.8 F L 75 18 177/96 H 99 Inital Vital Signs reviewed: Yes General: Well nourished, Well developed, No Acute Distress Head: Normocephalic, Atraumatic Eyes: Perrl, EOMI ENT: Moist mucous membranes, No rhinorrhea Neck: Supple, Nontender Cardiovascular: Regular rate, Regular rhythm, No murmurs Respiratory: No distress, CTA bilaterally, Chest nontender Abdomen: Soft, Nontender, Nondistended, Normal bowel sounds Back: Nontender, Normal Inspection Extremities: Nontender, No edema Skin: Normal color, No rash Neurological: Alert, Oriented x3, Cranial nerves II-XII grossly intact, Normal Strength, Normal Sensation, Left side facial droop, - - NIH of 2 Psychological: Normal affect, Normal Mood Diagnostic/Tx/Re-eval Chest X-Ray - ED: 1 View, Normal Clinical Impression(s) from Imaging Studies Brain CT 05/24/20 09:35 IMPRESSION: No evidence of acute intracranial bleed, mass or ischemia. If high clinical suspicion recommend MRI imaging to exclude occult CT findings. N.B. : The above information has been verbally conveyed by Vinay Cullen DO to Dr. Kassandra MD, on 05/24/2020 10:12:52 (ET). Electronically Signed: Vinay Cullen DO at 10:14 EDT , Service support , ADDENDUM: 05/24/20 1021 IMPRESSION: No evidence of acute intracranial bleed, mass or ischemia. If high clinical suspicion recommend MRI imaging to exclude occult CT findings. N.B. : The above information has been verbally conveyed by Vinay Cullen DO to Dr. Kassandra MD, on 05/24/2020 10:12:52 (ET). Electronically Signed: Vinay Cullen DO at 10:14 EDT , Service support , Chest X-Ray 05/24/20 09:35 IMPRESSION: No active disease. Electronically Signed: Pedro Velázquez MD at 10:35 EDT Tel , Service support , Head/Neck CTA 05/24/20 09:36 IMPRESSION: Normal CTA Head and neck with contrast. Electronically Signed: Pedro Velázquez MD at 10:28 EDT Tel , Service support , ADDENDUM: 05/24/20 1037 IMPRESSION: Normal CTA Head and neck with contrast. N.B. : The above information has been verbally conveyed by Pedro Velázquez MD to Dr. Kassandra MD, on 05/24/2020 10:30:16 (ET). Electronically Signed: Pedro Velázquez MD at 10:28 EDT Tel , Service support , Laboratory Data 05/24/20 05/24/20 05/24/20 09:30 09:30 09:30 WBC 5.9 RBC 5.22 Hgb 15.7 H Hct 49.5 H MCV 94.8 MCH 30.1 MCHC 31.7 L RDW Std Deviation 44.7 H RDW Coeff of Roger 12.8 Plt Count 171 MPV 9.1 Immature Gran % (Auto) 0.000 Neut % (Auto) 57.8 Lymph % (Auto) 23.9 Villalba % (Auto) 14.5 H Eos % (Auto) 2.4 Baso % (Auto) 1.4 H Absolute Neuts (auto) 3.4 Absolute Lymphs (auto) 1.40 Nucleated RBC % 0 PT 21.4 H INR 1.9 APTT 34.2 Sodium 142 Potassium 3.1 L Chloride 106 Carbon Dioxide 31.0 Anion Gap 5 BUN 24 H Creatinine 0.93 Estim Creat Clear Calc 44.86 Est GFR (MDRD) Af Amer 75 Est GFR (MDRD) Non-Af 62 BUN/Creatinine Ratio 25.9 H Glucose 79 Calcium 8.9 Troponin I < 0.015 - Medical Decision Making Patient presents as a stroke alert. Initial NIH of 2 secondary to left-sided lower facial droop. CT brain initially negative. CTA also negative. Lab work shows a mild hypokalemia which was replaced by mouth. Spoke with Dr. Edgar at [facility] stroke neurology who suggested MRI and admission. Patient was given aspirin. Patient agreeable with admission and admitted in stable condition to hospitalist Dr. Abad. Pression: 1. Left facial droop 2. Left facial paresthesia ED Disposition - Plan for ED Patient: [facility]
--- NOTE | 2020-05-24 12:19 | PCM.HP.STD ---
<Blanca Arias - Last Filed: 05/24/20 13:41> Problem List (1) Persistent atrial fibrillation Status: Chronic (2) Chronic diastolic (congestive) heart failure Status: Chronic (3) Secondary pulmonary arterial hypertension Status: Chronic (4) Essential (primary) hypertension Status: Chronic (5) half-way (current) use of anticoagulants Status: Chronic History of Present Illness Date of Admission: 05/24/20 Chief Complaint: Left facial droop. The patient is a 80 year old F who presents to the emergency room due to left-sided facial droop. Patient states she noticed the left side of her face felt abnormal while eating breakfast, when she looked in the mirror she noticed a left facial droop. She denies speech changes. Denies unilateral weakness or focal deficits. Denies difficulty swallowing. Patient states her left eye feels dry and irritated. She states over the past week her left ear has felt plugged and she has had pain under her left ear into her jaw/neck area. She denies recent illness or exposure to sick contacts. She has a past medical history of chronic persistent atrial fibrillation on anticoagulation with Coumadin, chronic diastolic CHF, valvular heart disease, hypertension. Past Medical History Past Medical History (Chronic Problems): Chronic Problems (Last Reviewed 07/26/19 @ 13:[address] Jef Whaely MD) Persistent atrial fibrillation (Chronic) Chronic diastolic (congestive) heart failure (Chronic) Secondary pulmonary arterial hypertension (Chronic) Essential (primary) hypertension (Chronic) medical terminologist (current) use of anticoagulants (Chronic) Medical History: Medical History (Last Reviewed 07/26/19 @ 13:[address] Jef Whaley MD) Persistent atrial fibrillation (Chronic) I48.1 Chronic diastolic (congestive) heart failure (Chronic) I50.32 Secondary pulmonary arterial hypertension (Chronic) I27.21 Essential (primary) hypertension (Chronic) I10 Atrial fibrillation with RVR I48.91 Hypokalemia (Resolved) E87.6 Atrial enlargement, bilateral (Inactive) I51.7 Nonrheumatic mitral valve regurgitation (Inactive) I34.0 Nonrheumatic tricuspid (valve) insufficiency (Inactive) I36.1 Allergies No Known Allergies Allergy (Verified 02/04/20 13:23) Home Medications: Ambulatory Orders Medication Instructions Recorded Cholecalciferol (VIT D3) [Vitamin 4,000 unit PO DAILY 11/21/14 D3] Cyanocobalamin [Vitamin B12] 500 mcg PO DAILY@0800 11/21/14 calcium carbonate 600 mg calcium 600 mg PO DAILY 07/26/19 (1,500 mg) tablet furosemide 40 mg tablet 40 mg PO QDAY #90 tab 11/13/19 metoprolol tartrate 100 mg tablet 100 mg PO BID #180 tab 12/20/19 potassium chloride 10 mEq 10 meq PO QDAY #90 cap 05/07/20 capsule,extended release Aspirin 325 mg PO DAILY@0800 #30 tab 05/24/20 Warfarin Sodium 2 mg PO TU 05/24/20 Warfarin Sodium 4 mg PO SUMOWETHFRSA 05/24/20 predniSONE tablet 60 mg PO DAILY #15 tab 05/24/20 Surgical History: Surgical History (Last Reviewed 07/26/19 @ 13:[address] 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 Lives: Alone Smoking Status: Never smoker Alcohol: None Drugs: None - *Family History Maternal Family History: Family History (Last Reviewed 05/24/20 @ 12:32 by SHARAN Mares) Mother Congestive heart failure Father angina Asthma Paternal Family History: Family History (Last Reviewed 05/24/20 @ 12:32 by SHARAN Mares) Mother Congestive heart failure Father angina Asthma Review of Systems Constitutional: Denies: Chills, Fever, Weight Change Eyes: Reports: - - Left eye irritation with redness and dryness HEENT: Denies: Head Aches, Sinus Congestion, Sinus Drainage Cardiovascular: Denies: Chest Pain, Palpitations Respiratory: Denies: Cough, Shortness of breath at rest, Sputum production Gastrointestinal: Denies: Abdominal Pain, Nausea, Vomiting Genitourinary: Denies: Dysuria Musculoskeletal: Denies: Joint Pain, Joint Tenderness Skin: Denies: Rash, Wounds Neurological: Reports: - - Left facial droop. Denies: Focal weakness, Numbness, Tingling Psychiatric: Denies: Anxiety, Depression, Homicidal Ideations, Suicidal Ideations Hematologic/ Lymphatic: Denies: Easy Bruising, Easy Bleeding VTE Information - Inpt Only VTE Present on Admission: No VTE Mechan Device Prophylaxis: None Reason prophylaxis not ordered:: Treatment Not Indicated - Already on Coumadin - Physical Exam Vitals/I&O's: Vital Signs Temp Pulse Resp BP Pulse Ox 96.8 F L 70 18 163/103 H 98 05/24/20 09:33 05/24/20 12:00 05/24/20 12:00 05/24/20 12:00 05/24/20 12:00 Oxygen Delivery Method Room Air Weight: 189 lb 13.088 oz Body Mass Index (BMI) 31.6 Finger Stick Blood Glucose 105 General: Alert, Oriented x3, Cooperative HEENT: Atraumatic, PERRLA, EOMI, Normocephalic, - - Left eye does not close completely. Redness and irritation present. Neck: Supple, No JVD, Negative Carotid Bruits Lungs: Clear to auscultation, Normal air movement Cardiovascular: - - Atrial fibrillation, rate controlled Abdomen: Bowel Sounds Present, Soft, Non Tender Extremities: No clubbing, No cyanosis, No edema, Capillary Refill Less than 3 Seconds Skin: No rashes, No breakdown Musculoskeletal: No Tenderness to Palpation of Joints or Extremities Neurological: Cranial nerves II-XII grossly intact, Neuro grossly intact, - - Mild left facial droop. Otherwise neuro grossly intact. Psych/Mental Status: Normal Affect, Appropriate Laboratory Results 05/24/20 09:30: WBC 5.9, RBC 5.22, Hgb 15.7 H, Hct 49.5 H, MCV 94.8, MCH 30.1, MCHC 31.7 L, RDW Std Deviation 44.7 H, RDW Coeff of Roger 12.8, Plt Count 171, MPV 9.1, Immature Gran % (Auto) 0.000, Neut % (Auto) 57.8, Lymph % (Auto) 23.9, [place] % (Auto) 14.5 H, Eos % (Auto) 2.4, Baso % (Auto) 1.4 H, Absolute Neuts (auto) 3.4, Absolute Lymphs (auto) 1.40, Nucleated RBC % 0 05/24/20 09:30: PT 21.4 H, INR 1.9, APTT 34.2 05/24/20 09:30: Sodium 142, Potassium 3.1 L, Chloride 106, Carbon Dioxide 31.0, Anion Gap 5, BUN 24 H, Creatinine 0.93, Estim Creat Clear Calc 44.86, Est GFR (MDRD) Af Amer 75, Est GFR (MDRD) Non-Af 62, BUN/Creatinine Ratio 25.9 H, Glucose 79, Calcium 8.9, Troponin I < 0.015 05/24/20 11:48: COVID-19 ([facility]) Pending Current Medications Iopamidol (Contrast Allergy Check) 0 ml IV X1 ELBA Assessment/Plan All Active Problems (Last Reviewed 07/26/19 @ 13:[address] Jef Whaley MD) Dizziness (Resolved) Hypokalemia (Resolved) 1. Conway's palsy with left facial droop-CTA of head and neck normal. MRI without acute infarct. Begin prednisone 60 mg daily for 5 days. Valacyclovir 1000 mg 3 times daily for 1 week. Eye care to prevent corneal injury. Artificial teardrops 4 times daily and as needed. Tape eye shut at night. Follow-up with PCP and ophthalmology. 2. Hypokalemia-replace per protocol. 3. Chronic persistent atrial fibrillation-rate controlled. Continue metoprolol, Coumadin. 4. Chronic diastolic CHF-echocardiogram May 2018 demonstrated an EF of 60%, mild to moderate tricuspid valve insufficiency, mild mitral valve insufficiency. Continue home Lasix regimen. 5. Valvular heart disease-per echo. 6. Hypertension-stable, continue metoprolol regimen. DVT prophylaxis-Coumadin This patient was seen by SHARAN Mares under the supervision of Dr. Workman. <Amina Workman - Last Filed: 05/24/20 15:36> History of Present Illness The patient is a 80 year old F [] Past Medical History Medical History: Medical History (Last Reviewed 07/26/19 @ 13:[address] Jef Whaley MD) Persistent atrial fibrillation (Chronic) I48.1 Chronic diastolic (congestive) heart failure (Chronic) I50.32 Secondary pulmonary arterial hypertension (Chronic) I27.21 Essential (primary) hypertension (Chronic) I10 Atrial fibrillation with RVR I48.91 Hypokalemia (Resolved) E87.6 Atrial enlargement, bilateral (Inactive) I51.7 Nonrheumatic mitral valve regurgitation (Inactive) I34.0 Nonrheumatic tricuspid (valve) insufficiency (Inactive) I36.1 Allergies No Known Allergies Allergy (Verified 02/04/20 13:23) Surgical History: Surgical History (Last Reviewed 07/26/19 @ 13:[address] Jef Whaley MD) History of open reduction and internal fixation (ORIF) procedure Z98.890 right shoulder History of tonsillectomy Z90.89 History of tonsillectomy Z98.890, Z90.89 s/p right shoulder surgery fracture - *Family History Maternal Family History: Family History (Last Reviewed 05/24/20 @ 12:32 by SHARAN Mares) Mother Congestive heart failure Father angina Asthma Paternal Family History: Family History (Last Reviewed 05/24/20 @ 12:32 by SHARAN Mares) Mother Congestive heart failure Father angina Asthma - Physical Exam Vitals/I&O's: Vital Signs Temp Pulse Resp BP Pulse Ox 96.8 F L 77 15 161/88 H 97 05/24/20 09:33 05/24/20 13:44 05/24/20 13:44 05/24/20 13:44 05/24/20 13:44 Oxygen Delivery Method Room Air Weight: 86.1 kg Body Mass Index (BMI) 31.6 Finger Stick Blood Glucose 105 Laboratory Results 05/24/20 09:30: WBC 5.9, RBC 5.22, Hgb 15.7 H, Hct 49.5 H, MCV 94.8, MCH 30.1, MCHC 31.7 L, RDW Std Deviation 44.7 H, RDW Coeff of Roger 12.8, Plt Count 171, MPV 9.1, Immature Gran % (Auto) 0.000, Neut % (Auto) 57.8, Lymph % (Auto) 23.9, [place] % (Auto) 14.5 H, Eos % (Auto) 2.4, Baso % (Auto) 1.4 H, Absolute Neuts (auto) 3.4, Absolute Lymphs (auto) 1.40, Nucleated RBC % 0 05/24/20 09:30: PT 21.4 H, INR 1.9, APTT 34.2 05/24/20 09:30: Sodium 142, Potassium 3.1 L, Chloride 106, Carbon Dioxide 31.0, Anion Gap 5, BUN 24 H, Creatinine 0.93, Estim Creat Clear Calc 44.86, Est GFR (MDRD) Af Amer 75, Est GFR (MDRD) Non-Af 62, BUN/Creatinine Ratio 25.9 H, Glucose 79, Calcium 8.9, Troponin I < 0.015 05/24/20 11:48: COVID-19 ([facility]) Negative Assessment/Plan This patient was seen in conjunction with Blanca Arias NP. I have independently interviewed and examined the patient and reviewed pertinent historical, laboratory, and other data. Please refer to her note for patient's presentation, findings, and recommendations. 80-year-old female with past medical history of hypertension, valvular heart disease, chronic atrial fibrillation, on Coumadin who comes in with complaints of left facial droop. Patient was last known normal at 12 midnight. She woke up this morning with left facial droop. She complains of left ear fullness ongoing for about a week. Denied any tinnitus. She denied any rash or new medications. No other weakness in any of her extremities. Work-up in the ED was negative with initial CT of the head. CT of the head and neck were negative. Patient underwent an MRI of the head that showed no acute infarct. She was felt to have acute Conway's palsy. Discussed with ED physician. Patient would not be admitted. Inpatient E&M: 49984 Init Hosp L3
[2020-05-24 12:56] LABS: Probe Check PASS; Specimen Processing Control PASS
[2020-05-25 10:11] LABS: Bedside Glucose 105 mg/dL (70-110)
== END 2020-05-24 13:56 | disposition home or self-care (01) ==
LOC: ED 10:43 → PCU 11:51 → ED 13:40
PROVIDERS: Emergency Provider Emergency Medicine; PCP Family Medicine
DX: G51.0 Bell's palsy (principal); E87.6 Hypokalemia; R29.702 NIHSS score 2; I11.0 Hypertensive heart disease with heart failure; I50.32 Chronic diastolic (congestive) heart failure; I48.19 Other persistent atrial fibrillation; Z79.899 Other long term (current) drug therapy; Z79.01 Long term (current) use of anticoagulants
CPT/HCPCS: 70450; 70496; 70498; 70551; 71045; 80048; 82962; 84484; 85025; 85610; 85730; 87635; 93005; 94799; 99285; Q9967; U0003

== ENCOUNTER 2020-06-11 16:02 | Outpatient (RCR) | payer MEDICARE, SELFPAY ==
[2020-05-24 10:24] VITALS: BMI 31.6
[2020-06-11 17:30] LABS: International Normalized Ratio 2.8; Prothrombin Time (Protime)PT. 29.1 SECONDS (11.7-14.9)
== END 2020-06-11 18:00 | disposition home or self-care (01) ==
LOC: LAB 16:02
PROVIDERS: Family Provider Family Medicine; PCP Family Medicine; Referring Provider Internal Medicine Cardiovascular Disease; Visit Provider Internal Medicine Cardiovascular Disease
DX: I48.19 Other persistent atrial fibrillation (principal); I11.0 Hypertensive heart disease with heart failure; I50.32 Chronic diastolic (congestive) heart failure; I27.21 Secondary pulmonary arterial hypertension; Z79.01 Long term (current) use of anticoagulants
CPT/HCPCS: 36415; 85610

== ENCOUNTER 2020-07-03 14:40 | Outpatient (RCR) | payer MEDICARE, SELFPAY ==
[2020-05-24 10:24] VITALS: BMI 31.6
[2020-07-03 14:51] LABS: Prothrombin Time Fingerstick 24.8 SEC (11.9-14.4)
== END 2020-07-03 18:00 | disposition home or self-care (01) ==
LOC: LAB 14:40
PROVIDERS: Family Provider Family Medicine; PCP Family Medicine; Referring Provider Internal Medicine Cardiovascular Disease; Visit Provider Internal Medicine Cardiovascular Disease
DX: I48.19 Other persistent atrial fibrillation (principal); I11.0 Hypertensive heart disease with heart failure; I50.32 Chronic diastolic (congestive) heart failure; I27.21 Secondary pulmonary arterial hypertension; Z79.01 Long term (current) use of anticoagulants
CPT/HCPCS: 36416; 85610

== ENCOUNTER 2020-07-31 10:39 | Outpatient (RCR) | payer MEDICARE, SELFPAY ==
[2020-05-24 10:24] VITALS: BMI 31.6
[2020-07-31 10:51] LABS: Prothrombin Time Fingerstick 27.5 SEC (11.9-14.4)
== END 2020-07-31 18:00 | disposition home or self-care (01) ==
LOC: LAB 10:39
PROVIDERS: Family Provider Family Medicine; PCP Family Medicine; Referring Provider Internal Medicine Cardiovascular Disease; Visit Provider Internal Medicine Cardiovascular Disease
DX: I48.19 Other persistent atrial fibrillation (principal); I11.0 Hypertensive heart disease with heart failure; I50.32 Chronic diastolic (congestive) heart failure; I27.21 Secondary pulmonary arterial hypertension; Z79.01 Long term (current) use of anticoagulants
CPT/HCPCS: 36416; 85610

== ENCOUNTER 2020-09-04 15:45 | Outpatient (RCR) | payer MEDICARE, SELFPAY ==
[2020-05-24 10:24] VITALS: BMI 31.6
[2020-09-04 15:55] LABS: Prothrombin Time Fingerstick 27.6 SEC (11.9-14.4)
== END 2020-09-04 18:00 | disposition home or self-care (01) ==
LOC: LAB 15:45
PROVIDERS: Family Provider Family Medicine; PCP Family Medicine; Referring Provider Internal Medicine Cardiovascular Disease; Visit Provider Internal Medicine Cardiovascular Disease
DX: I48.19 Other persistent atrial fibrillation (principal); I11.0 Hypertensive heart disease with heart failure; I50.32 Chronic diastolic (congestive) heart failure; I27.21 Secondary pulmonary arterial hypertension; Z79.01 Long term (current) use of anticoagulants
CPT/HCPCS: 36416; 85610

== ENCOUNTER 2020-10-15 15:38 | Outpatient (RCR) | payer MEDICARE, SELFPAY ==
[2020-09-23 09:09] VITALS: BMI 29.1
[2020-10-16 15:33] LABS: Prothrombin Time Fingerstick 24.5 SEC (11.9-14.4)
== END 2020-10-15 18:00 | disposition home or self-care (01) ==
LOC: LAB 15:38
PROVIDERS: Family Provider Family Medicine; PCP Family Medicine; Referring Provider Internal Medicine Cardiovascular Disease; Visit Provider Internal Medicine Cardiovascular Disease
DX: I48.19 Other persistent atrial fibrillation (principal); I11.0 Hypertensive heart disease with heart failure; I50.32 Chronic diastolic (congestive) heart failure; I27.21 Secondary pulmonary arterial hypertension; Z79.01 Long term (current) use of anticoagulants
CPT/HCPCS: 36416; 85610

== ENCOUNTER 2020-11-20 10:34 | Outpatient (RCR) | payer MEDICARE, SELFPAY ==
[2020-09-23 09:09] VITALS: BMI 29.1
[2020-11-20 10:45] LABS: Prothrombin Time Fingerstick 20.1 SEC (11.9-14.4)
== END 2020-11-20 18:00 | disposition home or self-care (01) ==
LOC: LAB 10:34
PROVIDERS: Family Provider Family Medicine; PCP Family Medicine; Referring Provider Internal Medicine Cardiovascular Disease; Visit Provider Internal Medicine Cardiovascular Disease
DX: I48.19 Other persistent atrial fibrillation (principal); I11.0 Hypertensive heart disease with heart failure; I50.32 Chronic diastolic (congestive) heart failure; I27.21 Secondary pulmonary arterial hypertension; Z79.01 Long term (current) use of anticoagulants
CPT/HCPCS: 36416; 85610

== ENCOUNTER 2020-12-11 14:59 | Outpatient (RCR) | payer MEDICARE, SELFPAY ==
[2020-09-23 09:09] VITALS: BMI 29.1
[2020-12-11 15:16] LABS: INR Fingerstick 3.1; Prothrombin Time Fingerstick 33.7 SEC (11.9-14.4)
== END 2020-12-11 18:00 | disposition home or self-care (01) ==
LOC: LAB 14:59
PROVIDERS: Family Provider Family Medicine; PCP Family Medicine; Referring Provider Internal Medicine Cardiovascular Disease; Visit Provider Internal Medicine Cardiovascular Disease
DX: I48.19 Other persistent atrial fibrillation (principal); I11.0 Hypertensive heart disease with heart failure; I50.32 Chronic diastolic (congestive) heart failure; I27.21 Secondary pulmonary arterial hypertension; Z79.01 Long term (current) use of anticoagulants
CPT/HCPCS: 36416; 85610

== ENCOUNTER 2021-01-15 15:04 | Outpatient (RCR) | payer MEDICARE, SELFPAY ==
[2020-09-23 09:09] VITALS: BMI 29.1
[2021-01-18 11:51] LABS: INR Fingerstick 2.5; Prothrombin Time Fingerstick 27.7 SEC (11.9-14.4)
== END 2021-01-15 18:00 | disposition home or self-care (01) ==
LOC: LAB 15:04
PROVIDERS: Family Provider Family Medicine; PCP Family Medicine; Referring Provider Internal Medicine Cardiovascular Disease; Visit Provider Internal Medicine Cardiovascular Disease
DX: I48.19 Other persistent atrial fibrillation (principal); I11.0 Hypertensive heart disease with heart failure; I50.32 Chronic diastolic (congestive) heart failure; I27.21 Secondary pulmonary arterial hypertension; Z79.01 Long term (current) use of anticoagulants
CPT/HCPCS: 36416; 85610

== ENCOUNTER 2021-02-12 15:46 | Outpatient (RCR) | payer MEDICARE, SELFPAY ==
[2020-09-23 09:09] VITALS: BMI 29.1
[2021-02-12 16:01] LABS: INR Fingerstick 2.1; Prothrombin Time Fingerstick 23.5 SEC (11.9-14.4)
== END 2021-02-12 18:00 | disposition home or self-care (01) ==
LOC: LAB 15:46
PROVIDERS: Family Provider Family Medicine; PCP Family Medicine; Referring Provider Internal Medicine Cardiovascular Disease; Visit Provider Internal Medicine Cardiovascular Disease
DX: I48.19 Other persistent atrial fibrillation (principal); I11.0 Hypertensive heart disease with heart failure; I50.32 Chronic diastolic (congestive) heart failure; I27.21 Secondary pulmonary arterial hypertension; Z79.01 Long term (current) use of anticoagulants
CPT/HCPCS: 36416; 85610

== ENCOUNTER 2021-03-19 15:46 | Outpatient (RCR) | payer MEDICARE, SELFPAY ==
[2020-09-23 09:09] VITALS: BMI 29.1
[2021-03-19 16:05] LABS: Prothrombin Time Fingerstick 23.1 SEC (11.9-14.4)
== END 2021-03-19 18:00 | disposition home or self-care (01) ==
LOC: LAB 15:46
PROVIDERS: Family Provider Family Medicine; PCP Family Medicine; Referring Provider Internal Medicine Cardiovascular Disease; Visit Provider Internal Medicine Cardiovascular Disease
DX: I48.19 Other persistent atrial fibrillation (principal); I11.0 Hypertensive heart disease with heart failure; I50.32 Chronic diastolic (congestive) heart failure; I27.21 Secondary pulmonary arterial hypertension; Z79.01 Long term (current) use of anticoagulants
CPT/HCPCS: 36416; 85610

== ENCOUNTER 2021-04-23 15:57 | Outpatient (RCR) | payer MEDICARE, SELFPAY ==
[2020-09-23 09:09] VITALS: BMI 29.1
[2021-04-23 16:25] LABS: INR Fingerstick 1.8; Prothrombin Time Fingerstick 21.2 SEC (11.9-14.4)
== END 2021-04-23 18:00 | disposition home or self-care (01) ==
LOC: LAB 15:57
PROVIDERS: Family Provider Family Medicine; PCP Family Medicine; Referring Provider Internal Medicine Cardiovascular Disease; Visit Provider Internal Medicine Cardiovascular Disease
DX: I48.19 Other persistent atrial fibrillation (principal); I11.0 Hypertensive heart disease with heart failure; I50.32 Chronic diastolic (congestive) heart failure; I27.21 Secondary pulmonary arterial hypertension; Z79.01 Long term (current) use of anticoagulants
CPT/HCPCS: 36416; 85610

== ENCOUNTER 2021-05-21 14:16 | Outpatient (RCR) | payer MEDICARE, SELFPAY ==
[2020-09-23 09:09] VITALS: BMI 29.1
[2021-05-21 14:55] LABS: INR Fingerstick 2.5; Prothrombin Time Fingerstick 27.6 SEC (11.9-14.4)
== END 2021-05-21 18:00 | disposition home or self-care (01) ==
LOC: LAB 14:16
PROVIDERS: Family Provider Family Medicine; PCP Family Medicine; Referring Provider Internal Medicine Cardiovascular Disease; Visit Provider Internal Medicine Cardiovascular Disease
DX: I48.19 Other persistent atrial fibrillation (principal); I11.0 Hypertensive heart disease with heart failure; I50.32 Chronic diastolic (congestive) heart failure; I27.21 Secondary pulmonary arterial hypertension; Z79.01 Long term (current) use of anticoagulants
CPT/HCPCS: 36416; 85610

== ENCOUNTER 2021-07-08 14:24 | Outpatient (RCR) | payer MEDICARE, SELFPAY ==
[2021-05-25 20:04] VITALS: BMI 29.1
[2021-07-08 14:46] LABS: INR Fingerstick 2.1
== END 2021-07-25 03:36 | disposition home or self-care (01) ==
LOC: LAB 14:24
PROVIDERS: Family Provider Family Medicine; PCP Family Medicine; Referring Provider Internal Medicine Cardiovascular Disease; Visit Provider Internal Medicine Cardiovascular Disease
DX: I48.19 Other persistent atrial fibrillation (principal); I11.0 Hypertensive heart disease with heart failure
CPT/HCPCS: 36416; 85610

== ENCOUNTER → 2021-07-23 | Outpatient (CLI) | payer MEDICARE, SELFPAY | END | disposition home or self-care (01) | PROVIDERS: PCP Family Medicine; Visit Provider Family Medicine | DX: Z20.822 Contact with and (suspected) exposure to COVID-19 (principal) | CPT/HCPCS: 87635; U0005; U0003 ==

== ENCOUNTER 2021-07-30 15:37 | Emergency (ER) | payer MEDICARE, SELFPAY ==
[2021-07-30 15:38] VITALS: BP 134/105; PULSE 81; RESP 14; TEMP 36.5; O2SAT 97; BMI 27.2
[2021-07-30 16:36] VITALS: PULSE 104; RESP 18; O2SAT 97
--- NOTE | 2021-07-30 16:40 | EDS_ITS ---
HPI History of Present Illness Chief Complaint: Weakness Detail of Chief Complaint: Infectious upper respiratory symptoms changes Informant: patient and family Onset/Context/Timing Onset: Weeks (Onset of symptoms 2 weeks ago) Context: Gradual Onset Timing: Continuous Quality: Upper respiratory Location: Generalized malaise, nonproductive cough and read HPI Current Severity: Difficult to quantitate Maximum Severity: Difficult to quantitate Worsened by: Nothing Relieved by: Nothing Associated Symptoms Associated Symptoms: Per HPI Narrative Narrative: Patient is a 81-year-old woman who reports onset of illness 2 weeks ago. She reports frontal headache, rhinorrhea, congestion, sore throat, nonproductive cough, myalgias, subjective fever and chills. She had a Covid test at [facility] 1 week ago and was informed it was negative. She is uncertain whether she had the rapid test performed or PCR test. She denies loss of taste or smell. She reports enhance taste and smell. She denies history of PE or DVT. She does have history of congestive heart failure. She has had no increased swelling of her legs and denies orthopnea or PND. She denies chest discomfort. She does report nausea. She denies vomiting or diarrhea. She denies dysuria, frequency, urgency or hematuria. Prior similar symptoms: Yes Recent Illness/Hospitalization: Yes [facility] Medical History Atrial enlargement, bilateral Atrial fibrillation with RVR Conway's palsy (04/2020) Chronic diastolic (congestive) heart failure Essential (primary) hypertension Hypokalemia Nonrheumatic mitral valve regurgitation Nonrheumatic tricuspid (valve) insufficiency Persistent atrial fibrillation Secondary pulmonary arterial hypertension Home Medications cholecalciferol (vitamin D3) 4,000 unit PO DAILY 11/21/14 [History Last Taken 07/25/16] cyanocobalamin (vitamin B-12) 500 mcg PO DAILY@0800 11/21/14 [History Last Taken 07/25/16] calcium carbonate 600 mg calcium (1,500 mg) tablet 600 mg PO DAILY 07/26/19 [History Last Taken Unknown] warfarin 4 mg tablet 4 mg PO SUMOWETHFRSA 90 Days #78 tab 08/18/20 [Rx Last Taken Unknown] hydrochlorothiazide 25 mg tablet 25 mg PO DAILY #90 tab 09/23/20 [Rx Last Taken Unknown] lisinopril 10 mg tablet 10 mg PO DAILY #90 tab 09/23/20 [Rx Last Taken Unknown] warfarin 2 mg tablet 2 mg PO QMWF 90 Days #60 tab 09/23/20 [Rx Last Taken Unknown] metoprolol tartrate 100 mg tablet 100 mg PO BID #180 tab 12/22/20 [Rx Last Taken Unknown] potassium chloride 20 meq PO DAILY #180 ml 07/30/21 [Rx Last Taken Unknown] Allergy/AdvReac Type Severity Reaction Status Date / Time No Known Allergies Allergy Verified 07/30/21 15:37 Family History Mother Congestive heart failure Father angina Asthma Surgical History History of open reduction and internal fixation (ORIF) procedure History of tonsillectomy s/p right shoulder surgery Social History (Updated 07/30/21 @ 16:[address] Ambrosio Pendleton MD) household members: none Smoking Status: Never smoker alcohol intake: never substance use type: does not use caffeine: Yes Type: coffee Number of servings: 1 ROS ROS ED Constitutional Constitutional ED: Reports chills, fever(s), subjective and weight loss; Denies sweats Eyes Eyes: Denies blurry vision, change in vision or diplopia ENT ENT ED: Reports rhinorrhea and sore throat; Denies ear pain Cardiovascular Cardiovascular: Denies chest pain, orthopnea, palpitations, paroxysmal nocturnal dyspnea or racing heartbeat Respiratory/Chest Respiratory/Chest: Reports cough, dyspnea and dyspnea on exertion; Denies ort hopnea, paroxysmal nocturnal dyspnea or sputum Gastrointestinal Gastrointestinal: Reports nausea; Denies abdominal pain, diarrhea or vomiting Genitourinary Genitourinary ED: Denies dysuria, hematuria or urinary frequency Musculoskeletal Musculoskeletal: Reports myalgias; Denies arthralgias, back pain or neck pain Integumentary Denies rash Neurologic Neurologic: Reports headache(s) and weakness; Denies paresthesias Endocrine Endocrinology: Denies polydipsia, polyphagia or polyuria EXAM Physical Exam Const Vital Signs: 07/30/21 15:38 07/30/21 16:36 07/30/21 17:02 Temperature 97.7 F L Temperature Source Temporal Pulse Rate 81 104 H 80 Respiratory Rate 14 18 18 Respiratory Effort Normal Respiratory Pattern Normal Normal Blood Pressure 134/105 H Blood Pressure Mean 114 Pulse Ox 97 97 Oxygen Delivery Method Room Air Room Air 07/30/21 18:17 Temperature Temperature Source Pulse Rate 95 Respiratory Rate 23 H Respiratory Effort Respiratory Pattern Blood Pressure 135/67 H Blood Pressure Mean 89 Pulse Ox 95 Oxygen Delivery Method Room Air Positive well nourished and well developed General Appearance ED: well developed and other Patient does not appear well. She is slouched over in the bed. She looks worse than her vital signs would indicate. ; Negative for cyanotic, diaphoretic, NAD or pallor HEENT Reports TM's clear and dry mucous membranes Negative for trauma or tenderness Tympanic Membrane ED: Yes TM's clear Mouth ED: Yes dry mucous membranes Mouth: dry mucous membranes Eyes PERRL and EOMs intact bilaterally General Eye ED: Negative for pale conjunctiva or scleral icterus Neck no lymphadenopathy, supple and no JVD Chest Wall palpation of chest normal Resp normal respiratory effort and No clear to auscultation bilaterally Auscultation: rales left lower and wheezes expiratory wheezes and throughout Cardio regular rate, regular rhythm, S1 normal heart sound, S2 normal heart sound and no murmurs GI normal to inspection, nondistended, normoactive bowel sounds, non-tender and non-distended Palpation: soft Back/Spine no CVA tenderness Cervical Spine: Negative for cervical spine tenderness Thoracic Spine / Upper Back: Negative for thoracic spinal tenderness or paraspinal muscle tenderness Extremity normal to inspection General Extremety ED: Yes edema; Negative for tenderness General Extremity: edema Neuro oriented x3, CN's II-XII intact bilaterally and no sensory deficits noted Sensorium / Orientation: alert Motor Exam: strength 5/5 throughout Skin no wounds Skin Narrative: There is evidence of stasis dermatitis right and left leg. General Skin Exam: Negative for jaundice or pallor MDM MDM MDM Narrative Medical decision making narrative: Patient presents with respiratory type symptoms and generalized weakness. This may be due to Covid. She had a negative Covid test 1 week ago. Uncertain whether she had a rapid test. Based on onset and when the test was obtained if this is was a rapid test this may represent a false negative. Will obtain appropriate blood work to rule out anemia, renal dysfunction etc. Chest x-ray to determine if she has pneumonia since rales are noted on the left with egophony and she has bilateral wheezing. She also received albuterol for the wheezing. Lab Data Attestation: I reviewed the patient's lab results. Lab results narrative: CBC and differential and H&H are unremarkable. Electrolyte panels marked for potassium 2.9. Sodium and chloride are slightly below lower end of normal. Creatinine is elevated 1.18 with a GFR of 47. BUN to creatinine ratio is elevated at 31 consistent with dehydration. Patient's hypokalemia may be due diuretic/thiazide diuretic. Patient received 50 mEq of potassium chloride in the emergency department. Plan is to discharge to home with potassium and follow-up with primary care physician. INR is therapeutic at 2.7. She is on Coumadin for persistent atrial fibrillation. Labs: Laboratory Results - last 24 hr 07/30/21 07/30/21 07/30/21 17:15 17:15 17:15 WBC 6.8 RBC 5.15 Hgb 15.7 H Hct 46.1 MCV 89.5 MCH 30.5 MCHC 34.1 RDW Std Deviation 40.5 RDW Coeff of Roger 12.3 Plt Count 215 MPV 8.8 Immature Gran % (Auto) 0.300 Neut % (Auto) 64.8 Lymph % (Auto) 16.4 L Ritchie % (Auto) 14.1 H Eos % (Auto) 3.2 Baso % (Auto) 1.2 H Absolute Neuts (auto) 4.4 Absolute Lymphs (auto) 1.12 Nucleated RBC % 0 PT INR Sodium 133 L Potassium 2.9 L Chloride 96 L Carbon Dioxide 32.0 Anion Gap 5 BUN 36 H Creatinine 1.18 H Estim Creat Clear Calc 34.79 Est GFR (MDRD) Af Amer 57 L Est GFR (MDRD) Non-Af 47 L BUN/Creatinine Ratio 30.5 H Glucose 109 H Lactic Acid 0.8 Calcium 9.6 Total Bilirubin 1.10 H AST 26 ALT 24 Alkaline Phosphatase 58 Total Protein 7.6 Albumin 3.2 Globulin 4.4 H Albumin/Globulin Ratio 0.7 L 07/30/21 17:15 WBC RBC Hgb Hct MCV MCH MCHC RDW Std Deviation RDW Coeff of Roger Plt Count MPV Immature Gran % (Auto) Neut % (Auto) Lymph % (Auto) Ritchie % (Auto) Eos % (Auto) Baso % (Auto) Absolute Neuts (auto) Absolute Lymphs (auto) Nucleated RBC % PT 28.2 H INR 2.7 Sodium Potassium Chloride Carbon Dioxide Anion Gap BUN Creatinine Estim Creat Clear Calc Est GFR (MDRD) Af Amer Est GFR (MDRD) Non-Af BUN/Creatinine Ratio Glucose Lactic Acid Calcium Total Bilirubin AST ALT Alkaline Phosphatase Total Protein Albumin Globulin Albumin/Globulin Ratio Radiography Chest X-Ray - ED: 1 View, Read by ED Physician (Interpreted by me at 1700), Unchanged, Normal, Heart, Mediastinum, Bony Structures, No Acute Disease and Chronic Changes (Hyper aeration) Diagnostic Testing: Clinical Impression(s) from Imaging Studies Chest X-Ray 07/30/21 16:45 IMPRESSION: Mildly hyperexpanded lungs without a superimposed acute pulmonary process. Electronically Signed: Willian Zuniga MD at 17:12 EDT , Service support , Discharge Plan Triage Chief Complaint: Weakness ED Provider: Ambrosio Pendleton Dx/Rx/DC Orders Clinical Impression: Systemic viral illness, Acute hypokalemia, Acute prerenal azotemia Instructions: ED Hypokalemia, ED URI, Viral, No Abx (Adult) Prescriptions: New potassium chloride 20 mEq/15 mL liquid 20 meq PO DAILY Qty: 180 RF: 0 No Action calcium carbonate [Calcium 600] 600 mg calcium (1,500 mg) tablet 600 mg PO DAILY RF: 0 warfarin 2 mg tablet 2 mg PO QMWF 90 Days Qty: 60 RF: 3 lisinopril 10 mg tablet 10 mg PO DAILY Qty: 90 RF: 3 hydrochlorothiazide 25 mg tablet 25 mg PO DAILY Qty: 90 RF: 3 cyanocobalamin (vitamin B-12) 500 MCG tablet 500 mcg PO DAILY@0800 RF: 0 cholecalciferol (vitamin D3) 1,000 UNIT tablet 4,000 unit PO DAILY RF: 0 warfarin 4 mg tablet 4 mg PO SUMOWETHFRSA 90 Days Qty: 78 RF: 3 metoprolol tartrate 100 mg tablet 100 mg PO BID Qty: 180 RF: 4 Primary Care Provider: Gabino Reyes Referrals: Gabino Reyes MD [Primary Care Provider] - 3-5 Days Disposition Disposition: Home, Self Care
--- NOTE | 2021-07-30 16:45 | RAD_ITS ---
STUDY: X-RAY CHEST REASON FOR EXAM: Female, 81 years old. Nonproductive cough, rales TECHNIQUE: Single AP portable view of the chest. COMPARISON: 05/24/2020 FINDINGS: EKG leads overlie the chest The lungs are mildly hyperexpanded without a superimposed acute pulmonary process. There is no demonstrated pleural abnormality. Normal size heart. Normal mediastinum and rudy. Normal visualized pulmonary arteries. Normal visualized aortic arch and descending thoracic aorta. There are diffuse degenerative changes of the visualized thoracic spine. Surgical hardware in the right humerus free of complication There is no demonstrated abnormality of the visualized soft tissue structures of the upper abdomen. RAD/Chest 1 View (Portable) IMPRESSION: Mildly hyperexpanded lungs without a superimposed acute pulmonary process. Electronically Signed: Willian Zuniga MD at 17:12 EDT , Service support ,
[2021-07-30 17:02] VITALS: PULSE 80; RESP 18
[2021-07-30] MEDS: Albuterol 2.5 MG/3 ML VIAL.NEB. INHALATION ×3 (17:09)
[2021-07-30 17:24] LABS: Absolute Lymphocyte Count 1.12 X10^3/uL (0.83-4.51); Absolute Neutrophil Count 4.4 X10^3/uL (2.0-7.7); Basophil# 0.08 X10^3/uL; Basophil% 1.2 % (0-1); Eosinophil# 0.22 X10^3/uL; Eosinophils% 3.2 % (0-5); Hematocrit 46.1 % (37-47); Hemoglobin 15.7 g/dL (12.0-15.0); Lymphocyte # 1.12 X10^3/ul (0.83-4.51); Lymphocyte % 16.4 % (19-41); Mean Corp Hgb Conc 34.1 g/dL (32-36); Mean Corpuscular Hgb 30.5 pg (27.0-32.0); Mean Corpuscular Volume 89.5 fL (81-99); Mean Platelet Vol. 8.8 fl (6.2-12.0); Monocyte# 0.96 X10^3/uL; Monocyte% 14.1 % (0-10); NRBC Flagged by Analyzer 0 % (0-5); Neutrophil # 4.43 X10^3/uL (2.7-7.7); Neutrophil % 64.8 % (47-70); Platelet Count 215 K/mm3 (150-450); RBC Distribution Width CV 12.3 % (11.6-14.6); RBC Distribution Width SD 40.5 fl (35.1-43.9); Red Blood Count 5.15 M/mm3 (4.2-5.4); White Blood Count 6.8 K/mm3 (4.4-11.0)
[2021-07-30 17:39] LABS: ALB/GLOB Ratio 0.7 RATIO (0.9-2.4); AST(SGOT) 26 U/L (15-37); Alanine Aminotransfer ALT/SGPT 24 U/L (13-56); Albumin, Serum 3.2 g/dL (3.2-5.0); Alkaline Phosphatase 58 U/L (45-117); Anion Gap 5 (5-15); BUN 36 mg/dL (7-18); BUN/Creat Ratio 30.5 RATIO (10-20); Calcium,Total 9.6 mg/dL (8.5-10.1); Chloride 96 mmol/L (98-107); Creatinine, Serum 1.18 mg/dL (0.55-1.02); EST Glomerular Filtration Rate 47 mL/min (>60); Est Glom Filt Rate - Afr Amer 57 mL/min (>60); Estimated Creatinine Clearance 34.79 ml/min; Globulin 4.4 g/dL (2.2-4.2); Glucose 109 mg/dL (74-106); Potassium 2.9 mmol/L (3.5-5.1); Protein, Total 7.6 g/dL (6.4-8.2); Sodium Level 133 mmol/L (136-145)
[2021-07-30 18:17] VITALS: BP 135/67; PULSE 95; RESP 23; O2SAT 95
[2021-07-30 18:17] LABS: Lactic Acid 0.8 mmol/L (0.4-1.9)
[2021-07-30] MEDS: Potassium Chloride Oral Soln 20 MEQ/15 ML UDC 40 MEQ PO (18:47)
[2021-07-30 18:58] LABS: International Normalized Ratio 2.7; Prothrombin Time (Protime)PT. 28.2 SECONDS (11.7-14.9)
[2021-07-30 20:17] VITALS: BP 139/71; PULSE 72; RESP 14; O2SAT 92
== END 2021-07-30 20:18 | disposition home or self-care (01) ==
PROVIDERS: Emergency Provider Emergency Medicine; PCP Family Medicine
DX: E87.6 Hypokalemia (principal); B34.9 Viral infection, unspecified; R79.89 Other specified abnormal findings of blood chemistry; I11.0 Hypertensive heart disease with heart failure; I50.32 Chronic diastolic (congestive) heart failure; I48.19 Other persistent atrial fibrillation; Z79.01 Long term (current) use of anticoagulants; Z79.899 Other long term (current) drug therapy
CPT/HCPCS: 71045; 80053; 83605; 85025; 85610; 94640; 99284

== ENCOUNTER → 2021-08-06 12:44 | Outpatient (CLI) | payer MEDICARE, SELFPAY ==
--- NOTE | 2021-08-06 12:48 | RAD_ITS ---
STUDY: XR Chest 2 Views 08/06/2021 12:27 PM REASON FOR EXAM: Female, 81 years old. CHEST PAIN COUGH COMPARISON: 07/30/2021 TECHNIQUE: XR Chest 2 Views FINDINGS: There is no demonstrated pleural abnormality. Enlarged heart size. Normal mediastinum. Normal rudy. Prominent appearing increased interstitial lung markings. Normal visualized pulmonary arteries. There is atherosclerotic calcification of the aortic arch with tortuosity. There are diffuse degenerative changes of the visualized thoracic spine. There is degenerative osteoarthritis of the bilateral shoulders. There is no demonstrated abnormality of the visualized soft tissue structures of the upper abdomen. RAD/Chest PA and Lateral IMPRESSION: There are no acute findings. Electronically Signed: Vic Mejia MD at 19:28 EST , Service support ,
== END ==
PROVIDERS: PCP Family Medicine; Referring Provider Family Medicine; Visit Provider Family Medicine
DX: R05.9 Cough, unspecified (principal)
CPT/HCPCS: 71046

== ENCOUNTER → 2021-08-10 14:51 | Outpatient (CLI) | payer MEDICARE, SELFPAY ==
[2021-08-10 15:41] LABS: Anion Gap 8 (5-15); BUN 16 mg/dL (7-18); BUN/Creat Ratio 12.8 RATIO (10-20); Calcium,Total 9.6 mg/dL (8.5-10.1); Chloride 88 mmol/L (98-107); Creatinine, Serum 1.25 mg/dL (0.55-1.02); EST Glomerular Filtration Rate 44 mL/min (>60); Est Glom Filt Rate - Afr Amer 53 mL/min (>60); Glucose 133 mg/dL (74-106); Potassium 2.9 mmol/L (3.5-5.1); Sodium Level 127 mmol/L (136-145)
== END ==
PROVIDERS: PCP Family Medicine; Referring Provider Nurse Practitioner Family; Visit Provider Internal Medicine Cardiovascular Disease
DX: E87.0 Hyperosmolality and hypernatremia (principal); E87.5 Hyperkalemia; I50.32 Chronic diastolic (congestive) heart failure
CPT/HCPCS: 36415; 80048

== ENCOUNTER → 2021-08-13 12:18 | Outpatient (CLI) | payer MEDICARE, SELFPAY ==
[2021-08-13 13:14] LABS: International Normalized Ratio 2.4; Prothrombin Time (Protime)PT. 25.5 SECONDS (11.7-14.9)
[2021-08-13 13:35] LABS: Anion Gap 6 (5-15); BUN 15 mg/dL (7-18); BUN/Creat Ratio 14.2 RATIO (10-20); Calcium,Total 9.2 mg/dL (8.5-10.1); Chloride 97 mmol/L (98-107); Creatinine, Serum 1.06 mg/dL (0.55-1.02); EST Glomerular Filtration Rate 53 mL/min (>60); Est Glom Filt Rate - Afr Amer 64 mL/min (>60); Glucose 99 mg/dL (74-106); Potassium 4.2 mmol/L (3.5-5.1); Sodium Level 133 mmol/L (136-145)
== END ==
PROVIDERS: Internal Medicine Cardiovascular Disease; PCP Family Medicine; Visit Provider Nurse Practitioner Family
DX: E87.0 Hyperosmolality and hypernatremia (principal); E87.5 Hyperkalemia; I50.32 Chronic diastolic (congestive) heart failure; I48.19 Other persistent atrial fibrillation; Z79.01 Long term (current) use of anticoagulants
CPT/HCPCS: 36415; 80048; 85610

== ENCOUNTER → 2021-08-27 10:47 | Outpatient (CLI) | payer MEDICARE, SELFPAY ==
[2021-08-27 11:42] LABS: Anion Gap 7 (5-15); BUN 11 mg/dL (7-18); BUN/Creat Ratio 12.2 RATIO (10-20); Calcium,Total 9.3 mg/dL (8.5-10.1); Chloride 104 mmol/L (98-107); EST Glomerular Filtration Rate 64 mL/min (>60); Est Glom Filt Rate - Afr Amer 78 mL/min (>60); Glucose 99 mg/dL (74-106); Potassium 3.7 mmol/L (3.5-5.1); Sodium Level 139 mmol/L (136-145)
== END ==
PROVIDERS: PCP Family Medicine; Referring Provider Nurse Practitioner Family; Visit Provider Nurse Practitioner Family
DX: E87.0 Hyperosmolality and hypernatremia (principal); E87.5 Hyperkalemia; I50.32 Chronic diastolic (congestive) heart failure
CPT/HCPCS: 36415; 80048

== ENCOUNTER 2021-09-09 14:42 | Outpatient (RCR) | payer MEDICARE, SELFPAY ==
[2021-07-25 03:36] VITALS: BMI 29.1
[2021-09-09 16:02] LABS: International Normalized Ratio 3.7; Prothrombin Time (Protime)PT. 35.7 SECONDS (11.7-14.9)
[2021-09-09 16:17] LABS: Anion Gap 6 (5-15); BUN 19 mg/dL (7-18); BUN/Creat Ratio 22.1 RATIO (10-20); Chloride 102 mmol/L (98-107); Creatinine, Serum 0.86 mg/dL (0.55-1.02); EST Glomerular Filtration Rate 68 mL/min (>60); Est Glom Filt Rate - Afr Amer 82 mL/min (>60); Glucose 113 mg/dL (74-106); Potassium 3.8 mmol/L (3.5-5.1); Sodium Level 138 mmol/L (136-145)
== END 2021-09-25 18:00 | disposition home or self-care (01) ==
LOC: LAB 14:42
PROVIDERS: Nurse Practitioner Family; Family Provider Family Medicine; PCP Family Medicine; Referring Provider Internal Medicine Cardiovascular Disease; Visit Provider Internal Medicine Cardiovascular Disease
DX: I48.19 Other persistent atrial fibrillation (principal); I50.32 Chronic diastolic (congestive) heart failure; E87.5 Hyperkalemia; E87.0 Hyperosmolality and hypernatremia; Z79.01 Long term (current) use of anticoagulants
CPT/HCPCS: 36415; 80048; 85610

== ENCOUNTER 2021-09-28 09:29 | Outpatient (CLI) | payer MEDICARE, SELFPAY ==
--- NOTE | 2021-09-28 16:17 | PFTCOMP_ITS ---
COMPLETE PULMONARY FUNCTION TEST INTERPRETATION Brief HPI: Patient is a 81 year old female, currently under the care of myself, who presents to [facility] for complete pulmonary function tests secondary to diagnosis of chronic cough. Respiratory therapist reports good effort and reproducible results. Interpretation: Forced expiration spirometry shows no large airways obstructive ventilatory defect with an FEV1 of 112% predicted. There is no significant bronchodilator response by strict ATS criteria. Spirograms are of good quality and plateau normally. The respiratory flow volume loop shows a normal pattern. Lung volumes by body plethysmography show a normal total lung capacity at 4.93 L, 100% predicted. All other lung volumes are within normal limits. Diffusion capacity by carbon monoxide is normal at 81% predicted. The airway resistance is elevated. No previous pulmonary function tests were available for review. Impression: Grossly normal pulmonary function tests
== END 2021-09-28 23:59 | disposition short-term general hospital (02) ==
LOC: PSN 09:34
PROVIDERS: PCP Family Medicine; Referring Provider Internal Medicine Critical Care Medicine; Visit Provider Internal Medicine Critical Care Medicine
DX: R05.3 Chronic cough (principal); I48.11 Longstanding persistent atrial fibrillation; Z79.01 Long term (current) use of anticoagulants
CPT/HCPCS: 36416; 85610; 94060; 94726; 94729

== ENCOUNTER 2021-09-28 10:45 | Outpatient (RCR) | payer MEDICARE, SELFPAY ==
[2021-09-26 04:04] VITALS: BMI 29.1
[2021-09-28 11:01] LABS: INR Fingerstick 2.4; Prothrombin Time Fingerstick 26.6 SEC (11.9-14.4)
== END 2021-10-25 18:00 | disposition home or self-care (01) ==
LOC: LAB 10:45
PROVIDERS: Family Provider Family Medicine; PCP Family Medicine; Referring Provider Internal Medicine Cardiovascular Disease; Visit Provider Internal Medicine Cardiovascular Disease
DX: I48.11 Longstanding persistent atrial fibrillation (principal); Z79.01 Long term (current) use of anticoagulants
CPT/HCPCS: 36416; 85610

== ENCOUNTER 2021-10-22 14:51 | Outpatient (CLI) | payer MEDICARE, SELFPAY ==
--- NOTE | 2021-10-22 14:53 | CT_ITS ---
STUDY: CT FACIAL BONES WITHOUT CONTRAST REASON FOR EXAM: Female, 81 years old. FACIAL PAIN/COUGH RADIATION DOSAGE (If Supplied By Facility): CTDIvol = ( 28.14 ) mGy, DLP = ( 735.64 ) mGycm TECHNIQUE: The patient was scanned in a multi detector CT scanner. Sagittal and coronal images were reconstructed. Individualized dose optimization techniques were used for this CT. COMPARISON: None. FINDINGS: Normal soft tissue structures. Normal orbital meza and orbital contents. Normal nasal bones and anterior nasal spine. Normal facial bones. There is no demonstrated fracture. Minimal nodular mucosal thickening along the anterior aspect of the right sphenoid sinus measuring 4.[address]/Sinus/Facial Bone IMPRESSION: Minimal mucosal thickening along the anterior aspect of the right sphenoid sinus. Electronically Signed: Malick Quijano MD at 15:32 EST ,
== END 2021-10-22 23:59 | disposition short-term general hospital (02) ==
LOC: CT 14:53
PROVIDERS: PCP Family Medicine; Referring Provider Otolaryngology; Visit Provider Otolaryngology
DX: R05.9 Cough, unspecified (principal); G50.1 Atypical facial pain
CPT/HCPCS: 70486

== ENCOUNTER 2021-10-27 10:08 | Outpatient (RCR) | payer MEDICARE, SELFPAY ==
[2021-10-25 22:51] VITALS: BMI 29.1
[2021-11-01 11:06] LABS: Prothrombin Time Fingerstick 23.7 SEC (11.9-14.4)
== END 2021-10-27 18:00 | disposition home or self-care (01) ==
LOC: LAB 10:08
PROVIDERS: Family Provider Family Medicine; PCP Family Medicine; Referring Provider Internal Medicine Cardiovascular Disease; Visit Provider Internal Medicine Cardiovascular Disease
DX: I48.19 Other persistent atrial fibrillation (principal); Z79.01 Long term (current) use of anticoagulants
CPT/HCPCS: 36416; 85610

== ENCOUNTER 2021-12-02 15:45 | Outpatient (RCR) | payer MEDICARE, SELFPAY ==
[2021-11-23 09:34] VITALS: BMI 29.1
[2021-12-02 16:01] LABS: INR Fingerstick 2.2; Prothrombin Time Fingerstick 25.3 SEC (11.7-14.9)
== END 2021-12-23 18:00 | disposition home or self-care (01) ==
LOC: LAB 15:45
PROVIDERS: Family Provider Family Medicine; PCP Internal Medicine; Referring Provider Internal Medicine Cardiovascular Disease; Visit Provider Internal Medicine Cardiovascular Disease
DX: I48.11 Longstanding persistent atrial fibrillation (principal); Z79.01 Long term (current) use of anticoagulants
CPT/HCPCS: 36416; 85610

== ENCOUNTER 2021-12-15 11:47 | Outpatient (CLI) | payer MEDICARE, SELFPAY ==
[2021-12-15 15:19] LABS: Anion Gap 7 (5-15); BUN 18 mg/dL (7-18); BUN/Creat Ratio 21.4 RATIO (10-20); Chloride 106 mmol/L (98-107); Creatinine, Serum 0.84 mg/dL (0.55-1.02); EST Glomerular Filtration Rate 69 mL/min (>60); Est Glom Filt Rate - Afr Amer 84 mL/min (>60); Glucose 105 mg/dL (74-106); Potassium 3.6 mmol/L (3.5-5.1); Sodium Level 142 mmol/L (136-145)
[2021-12-15 15:32] LABS: BNP,B-Type NATRIURETIC PEPTIDE 539.7 pg/mL (0-100)
== END 2021-12-15 23:59 | disposition home or self-care (01) ==
LOC: BIMLAB 11:48
PROVIDERS: PCP Internal Medicine; Referring Provider Internal Medicine; Visit Provider Internal Medicine
DX: I50.32 Chronic diastolic (congestive) heart failure (principal)
CPT/HCPCS: 36415; 80048; 83880

== ENCOUNTER 2021-12-23 14:28 | Outpatient (CLI) | payer MEDICARE, SELFPAY ==
[2021-12-23 15:42] LABS: Anion Gap 4 (5-15); BUN 21 mg/dL (7-18); BUN/Creat Ratio 23.7 RATIO (10-20); Calcium,Total 8.4 mg/dL (8.5-10.1); Chloride 108 mmol/L (98-107); Creatinine, Serum 0.88 mg/dL (0.55-1.02); EST Glomerular Filtration Rate 65 mL/min (>60); Est Glom Filt Rate - Afr Amer 79 mL/min (>60); Glucose 101 mg/dL (74-106); Potassium 3.2 mmol/L (3.5-5.1); Sodium Level 143 mmol/L (136-145)
== END 2021-12-23 23:59 | disposition home or self-care (01) ==
LOC: LAB 14:29
PROVIDERS: PCP Internal Medicine; Visit Provider Internal Medicine
DX: I50.32 Chronic diastolic (congestive) heart failure (principal)
CPT/HCPCS: 36415; 80048

== ENCOUNTER 2022-01-06 15:29 | Outpatient (RCR) | payer MEDICARE, SELFPAY ==
[2021-12-24 01:38] VITALS: BMI 29.1
[2022-01-06 16:01] LABS: Prothrombin Time Fingerstick 24.1 SEC (11.7-14.9)
== END 2022-01-06 18:00 | disposition home or self-care (01) ==
LOC: LAB 15:29
PROVIDERS: Family Provider Family Medicine; PCP Internal Medicine; Referring Provider Internal Medicine Cardiovascular Disease; Visit Provider Internal Medicine Cardiovascular Disease
DX: I48.11 Longstanding persistent atrial fibrillation (principal); Z79.01 Long term (current) use of anticoagulants
CPT/HCPCS: 36416; 85610

== ENCOUNTER 2022-02-11 15:26 | Outpatient (RCR) | payer MEDICARE, SELFPAY ==
[2022-01-23 03:20] VITALS: BMI 29.1
[2022-02-11 15:46] LABS: INR Fingerstick 1.7; Prothrombin Time Fingerstick 19.9 SEC (11.7-14.9)
== END 2022-02-11 18:00 | disposition home or self-care (01) ==
LOC: LAB 15:26
PROVIDERS: Family Provider Family Medicine; PCP Internal Medicine; Referring Provider Internal Medicine Cardiovascular Disease; Visit Provider Internal Medicine Cardiovascular Disease
DX: I48.19 Other persistent atrial fibrillation (principal); Z79.01 Long term (current) use of anticoagulants
CPT/HCPCS: 36416; 85610

== ENCOUNTER 2022-03-08 11:13 | Emergency (ER) | payer MEDICARE, SELFPAY ==
[2022-03-08 11:14] VITALS: BP 174/100; PULSE 87; RESP 20; TEMP 36.6; O2SAT 99; BMI 25.2
[2022-03-08 11:31] VITALS: BP 158/90
--- NOTE | 2022-03-08 11:38 | EX.ED.UPPERE ---
HPI History of Present Illness Chief Complaint: Upper Extremity Injury Narrative Narrative: Patient with past medical history of atrial fibrillation, on warfarin, presents with pain and bruising of her right upper arm that she has had since yesterday. She states she reports from [facility] where they performed an x-ray, and told her that she needed to come to the emergency department to reverse her warfarin because there was a fluid collection in her soft tissue. 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) Chronic diastolic (congestive) heart failure Chronic neck and back pain Essential (primary) hypertension Fatigue GERD (gastroesophageal reflux disease) Hemorrhoids Hypokalemia Nonrheumatic mitral valve regurgitation Nonrheumatic tricuspid (valve) insufficiency Persistent atrial fibrillation Secondary pulmonary arterial hypertension Severe headache Shoulder pain SOB (shortness of breath) Weight loss Home Medications cholecalciferol (vitamin D3) 4,000 unit PO DAILY 11/21/14 [History Last Taken 07/25/16] cyanocobalamin (vitamin B-12) 500 mcg PO DAILY@0800 11/21/14 [History Last Taken 07/25/16] calcium carbonate 600 mg calcium (1,500 mg) tablet 600 mg PO DAILY 07/26/19 [History Last Taken Unknown] warfarin 2 mg tablet 2 mg PO QMWF 90 Days #60 tab 09/23/20 [Rx Last Taken Unknown] warfarin 4 mg tablet 4 mg PO SUMOWETHFRSA 90 Days #78 tab 10/25/21 [Rx Last Taken Unknown] omeprazole 40 mg capsule,delayed release 40 mg PO DAILY #90 cap 11/16/21 [Rx Last Taken Unknown] furosemide 40 mg tablet 40 mg PO Q OTHER DAY #90 tab 02/22/22 [Rx Last Taken Unknown] metoprolol tartrate 100 mg tablet 100 mg PO BID #180 tab 02/22/22 [Rx Last Taken Unknown] potassium chloride 10 mEq tablet,extended release 10 meq PO DAILY 90 Days #90 tab 02/22/22 [Rx Last Taken Unknown] Allergy/AdvReac Type Severity Reaction Status Date / Time grass pollen Allergy unknown Verified 03/08/22 11:17 Family History Mother Congestive heart failure Colon cancer Father angina Asthma Grandfather Diabetes Brother Hypertension Surgical History (Updated 03/08/22 @ 11:06 by Bhavna Hercules) History of cataract surgery History of open reduction and internal fixation (ORIF) procedure History of tonsillectomy s/p right shoulder surgery Social History household members: none Smoking Status: Never smoker alcohol intake: never substance use type: does not use caffeine: Yes Type: coffee Number of servings: 1 what type of physical activity do you participate in: none EXAM Physical Exam Const Vital Signs: 03/08/22 11:14 03/08/22 11:31 Temperature 97.9 F Temperature Source Temporal Pulse Rate 87 Respiratory Rate 20 H Blood Pressure 174/100 H 158/90 H Blood Pressure Mean 124 112 Pulse Ox 99 Oxygen Delivery Method Room Air [facility] Lab Data Attestation: I reviewed the patient's lab results. Lab results narrative: INR is therapeutic at 2.9. I see no reason for reversal with vitamin K. I do think that she may have more of a muscle belly tear versus distal biceps tendon rupture. There is no evidence of compartment syndrome. She is neurovascular intact distally. She will be placed in an Fernandez wrap, and given a sling for comfort. She was told to exercise her shoulder and her right forearm. I discussed patient with Dr. Segal, who agrees with outpatient follow-up. She is to call the office for an appointment on Monday, 3 days from now. She will hold her Coumadin for the next 3 days and have it rechecked and be told when to restart it by her patient account specialist office. At this point in time, I do not feel that repeat x-rays are indicated. I did review the x-ray from today, and the radiologist read it as soft tissue swelling. I saw no evidence of fracture. I feel she be discharged safely home with follow-up. Return instructions were reviewed. Disposition is discharged home in stable condition. Discharge Plan Triage Chief Complaint: Upper Extremity Injury ED Provider: Steven York Dx/Rx/DC Orders Clinical Impression: Biceps tendon rupture, superintendent container terminal (current) use of anticoagulants, Hematoma Instructions: ED Hematoma, ED Muscle Strain, Extremity Prescriptions: No Action calcium carbonate [Calcium 600] 600 mg calcium (1,500 mg) tablet 600 mg PO DAILY RF: 0 warfarin 2 mg tablet 2 mg PO QMWF 90 Days Qty: 60 RF: 3 potassium chloride 10 mEq tablet extended release 10 meq PO DAILY 90 Days Qty: 90 RF: 3 furosemide 40 mg tablet 40 mg PO Q OTHER DAY Qty: 90 RF: 2 metoprolol tartrate 100 mg tablet 100 mg PO BID Qty: 180 RF: 4 omeprazole 40 mg capsule,delayed release(DR/EC) 40 mg PO DAILY Qty: 90 RF: 3 cyanocobalamin (vitamin B-12) 500 MCG tablet 500 mcg PO DAILY@0800 RF: 0 cholecalciferol (vitamin D3) 1,000 UNIT tablet 4,000 unit PO DAILY RF: 0 warfarin 4 mg tablet 4 mg PO SUMOWETHFRSA 90 Days Qty: 78 RF: 3 Primary Care Provider: Justin Hernandes Referrals: Justin Hernandes MD [Primary Care Provider] - Andrea Puckett DO [STAFF PHYSICIAN] - 3-5 Days Activity Restrictions/Additional Instructions: You may have a biceps tendon rupture versus muscle tear. Apply ice to the hematoma. Follow-up with orthopedics. Call Dr. Puckett today/tomorrow for an appointment on Monday. Hold your Coumadin/warfarin for the next 3 days and have it rechecked. Disposition Disposition: Home, Self Care
[2022-03-08 12:18] LABS: International Normalized Ratio 2.9; Prothrombin Time (Protime)PT. 29.6 SECONDS (11.7-14.9)
[2022-03-08 12:55] VITALS: BP 164/101
== END 2022-03-08 13:55 | disposition home or self-care (01) ==
PROVIDERS: Emergency Provider Emergency Medicine; PCP Internal Medicine; Visit Provider Emergency Medicine
DX: S46.111A Strain of muscle, fascia and tendon of long head of biceps, right arm, initial encounter (principal); I11.0 Hypertensive heart disease with heart failure; I50.32 Chronic diastolic (congestive) heart failure; I48.19 Other persistent atrial fibrillation; S40.021A Contusion of right upper arm, initial encounter; X58.XXXA Exposure to other specified factors, initial encounter; E87.6 Hypokalemia; K21.9 Gastro-esophageal reflux disease without esophagitis; Z79.01 Long term (current) use of anticoagulants; Z79.899 Other long term (current) drug therapy
CPT/HCPCS: 85610; 99283; A4216

== ENCOUNTER 2022-03-11 09:25 | Outpatient (RCR) | payer MEDICARE, SELFPAY ==
[2022-02-22 20:34] VITALS: BMI 29.1
[2022-03-11 10:57] LABS: International Normalized Ratio 1.8; Prothrombin Time (Protime)PT. 20.7 SECONDS (11.7-14.9)
[2022-03-11 11:07] LABS: Anion Gap 5 (5-15); BUN 16 mg/dL (7-18); BUN/Creat Ratio 21.2 RATIO (10-20); Calcium,Total 8.6 mg/dL (8.5-10.1); Chloride 107 mmol/L (98-107); Creatinine, Serum 0.76 mg/dL (0.55-1.02); EST Glomerular Filtration Rate 78 mL/min (>60); Est Glom Filt Rate - Afr Amer 95 mL/min (>60); Glucose 61 mg/dL (74-106); Potassium 3.2 mmol/L (3.5-5.1); Sodium Level 142 mmol/L (136-145)
== END 2022-03-11 23:59 | disposition home or self-care (01) ==
LOC: LAB 09:25
PROVIDERS: Family Provider Family Medicine; PCP Internal Medicine; Referring Provider Internal Medicine Cardiovascular Disease; Visit Provider Internal Medicine Cardiovascular Disease
DX: I48.19 Other persistent atrial fibrillation (principal); Z79.01 Long term (current) use of anticoagulants; I10 Essential (primary) hypertension
CPT/HCPCS: 36415; 80048; 85610

== ENCOUNTER 2022-04-01 15:15 | Outpatient (RCR) | payer MEDICARE, SELFPAY ==
[2022-03-25 06:53] VITALS: BMI 29.1
[2022-04-01 15:25] LABS: INR Fingerstick 2.1; Prothrombin Time Fingerstick 24.6 SEC (11.7-14.9)
== END 2022-04-24 02:12 | disposition home or self-care (01) ==
LOC: LAB 15:15
PROVIDERS: Family Provider Family Medicine; PCP Internal Medicine; Referring Provider Internal Medicine Cardiovascular Disease; Visit Provider Internal Medicine Cardiovascular Disease
DX: I48.19 Other persistent atrial fibrillation (principal); Z79.01 Long term (current) use of anticoagulants
CPT/HCPCS: 36416; 85610

== ENCOUNTER 2022-05-12 15:25 | Outpatient (RCR) | payer MEDICARE, SELFPAY ==
[2022-04-24 02:12] VITALS: BMI 29.1
[2022-05-12 16:39] LABS: Absolute Lymphocyte Count 0.85 X10^3/uL (0.83-4.51); Basophil# 0.06 X10^3/uL; Basophil% 1.3 % (0-1); Eosinophil# 0.14 X10^3/uL; Hematocrit 41.1 % (37-47); Hemoglobin 13.5 g/dL (12.0-15.0); Lymphocyte # 0.85 X10^3/ul (0.83-4.51); Lymphocyte % 18.1 % (19-41); Mean Corp Hgb Conc 32.8 g/dL (32-36); Mean Corpuscular Hgb 30.8 pg (27.0-32.0); Mean Corpuscular Volume 93.8 fL (81-99); Mean Platelet Vol. 9.6 fl (6.2-12.0); Monocyte% 12.8 % (0-10); NRBC Flagged by Analyzer 0 % (0-5); Neutrophil # 3.04 X10^3/uL (2.7-7.7); Neutrophil % 64.8 % (47-70); Platelet Count 160 K/mm3 (150-450); RBC Distribution Width CV 13.1 % (11.6-14.6); RBC Distribution Width SD 44.8 fl (35.1-43.9); Red Blood Count 4.38 M/mm3 (4.2-5.4); White Blood Count 4.7 K/mm3 (4.4-11.0)
[2022-05-12 16:46] LABS: International Normalized Ratio 2.7; Prothrombin Time (Protime)PT. 28.3 SECONDS (11.7-14.9)
[2022-05-12 16:52] LABS: Anion Gap 5 (5-15); BUN 22 mg/dL (7-18); BUN/Creat Ratio 26.2 RATIO (10-20); Calcium,Total 9.1 mg/dL (8.5-10.1); Chloride 109 mmol/L (98-107); Creatinine, Serum 0.84 mg/dL (0.55-1.02); EST Glomerular Filtration Rate 69 mL/min (>60); Est Glom Filt Rate - Afr Amer 84 mL/min (>60); Glucose 102 mg/dL (74-106); Sodium Level 143 mmol/L (136-145)
== END 2022-05-25 23:59 ==
LOC: BIMLAB 15:25
PROVIDERS: Family Provider Family Medicine; PCP Internal Medicine; Referring Provider Internal Medicine Cardiovascular Disease; Visit Provider Internal Medicine Cardiovascular Disease
DX: I48.19 Other persistent atrial fibrillation (principal); Z79.01 Long term (current) use of anticoagulants; I10 Essential (primary) hypertension; K21.9 Gastro-esophageal reflux disease without esophagitis
CPT/HCPCS: 36415; 80048; 85025; 85610

== ENCOUNTER → 2022-05-19 | Outpatient (CLI) | payer MEDICARE, SELFPAY ==
--- NOTE | 2022-05-19 10:56 | BD_ITS ---
STUDY: DUAL ENERGY X-RAY ABSORPTIOMETRY / DXA REASON FOR EXAM: Female, 82 years old. Post Menopausal TECHNIQUE: Bone Mineral Density (BMD) measurements of lumbar spine and bilateral hips were obtained. COMPARISON: None. FINDINGS: Lumbar Spine (L1-L4): g/cm2 (0.639) / T-score (-3.7) / Z-score (-1.0) Findings are suggestive of osteoporosis with a high fracture risk. Left Femur Total: g/cm2 (0.507) / T-score (-3.6) / Z-score (-1.5) Left Femoral Neck: g/cm2 (0.426) / T-score (-3.8) / Z-score (-1.5) Right Femur Total: g/cm2 (0.561) / T-score (-3.1) / Z-score (-1.1) Right Femoral Neck: g/cm2 (0.428) / T-score (-3.8) / Z-score (-1.5) BD/Dexa Bone Density Study IMPRESSION: The patient is considered osteoporotic as outlined below according to World [employer] Organization (WHO) criteria with a high fracture risk. Reference Information: The T-score is the number of standard deviations above or below the standard which is normal for young adults at their peak bone mineral density. The World Health Organization (WHO) interprets the T-scores as follows: Above -1 Normal bone density Between -1 and -2.5 Osteopenia Equal to / or below -2.5 Osteoporosis As a practical clinical guideline, osteopenia may be graded as follows: Mild -1 through -1.5 Moderate -1.6 through -2.0 Severe -2.1 through -2.4 The Z-score is the number of standard deviations above or below age-matched controls. A Z-score of less than -1.5 would be considered abnormal. References: 1. NIH Osteoporosis and Related Bone Diseases www osteo.org 2. International Society for Clinical Densitometry www iscd.org 3. National Osteoporosis Foundation www nof.org Electronically Signed: Malick Quijano MD at 14:52 EDT ,
== END | disposition home or self-care (01) ==
LOC: OPBD 10:52
PROVIDERS: PCP Internal Medicine; Visit Provider Internal Medicine
DX: M85.80 Other specified disorders of bone density and structure, unspecified site (principal); Z78.0 Asymptomatic menopausal state
CPT/HCPCS: 77080

== ENCOUNTER → 2022-05-31 | Outpatient (CLI) | payer MEDICARE, SELFPAY ==
[2022-05-31 16:54] LABS: Vitamin D,25 Hydroxy 56.3 ng/mL
== END | disposition home or self-care (01) ==
LOC: BIMLAB 14:57
PROVIDERS: PCP Internal Medicine; Referring Provider Internal Medicine; Visit Provider Internal Medicine
DX: M81.0 Age-related osteoporosis without current pathological fracture (principal)
CPT/HCPCS: 36415; 82306

== ENCOUNTER 2022-06-17 15:31 | Outpatient (RCR) | payer MEDICARE, SELFPAY ==
[2022-05-26 00:11] VITALS: BMI 29.1
[2022-06-17 15:41] LABS: INR Fingerstick 2.8; Prothrombin Time Fingerstick 32.6 SEC (11.7-14.9)
== END 2022-06-17 18:00 | disposition home or self-care (01) ==
LOC: LAB 15:31
PROVIDERS: Family Provider Family Medicine; PCP Internal Medicine; Referring Provider Internal Medicine Cardiovascular Disease; Visit Provider Internal Medicine Cardiovascular Disease
DX: I48.19 Other persistent atrial fibrillation (principal); Z79.01 Long term (current) use of anticoagulants
CPT/HCPCS: 36416; 85610

== ENCOUNTER 2022-07-22 15:22 | Outpatient (RCR) | payer MEDICARE, SELFPAY ==
[2022-06-24 20:41] VITALS: BMI 29.1
[2022-07-22 15:46] LABS: INR Fingerstick 2.2; Prothrombin Time Fingerstick 26.1 SEC (11.7-14.9)
== END 2022-07-22 18:00 | disposition home or self-care (01) ==
LOC: LAB 15:22
PROVIDERS: Family Provider Family Medicine; PCP Internal Medicine; Referring Provider Internal Medicine Cardiovascular Disease; Visit Provider Internal Medicine Cardiovascular Disease
DX: I48.19 Other persistent atrial fibrillation (principal); Z79.01 Long term (current) use of anticoagulants
CPT/HCPCS: 36416; 85610

== ENCOUNTER 2022-09-02 15:12 | Outpatient (RCR) | payer MEDICARE, SELFPAY ==
[2022-07-26 09:33] VITALS: BMI 29.1
[2022-09-06 06:51] LABS: INR Fingerstick 1.7; Prothrombin Time Fingerstick 19.9 SEC (11.7-14.9)
== END 2022-09-02 18:00 | disposition home or self-care (01) ==
LOC: LAB 15:12
PROVIDERS: Family Provider Family Medicine; PCP Internal Medicine; Referring Provider Internal Medicine Cardiovascular Disease; Visit Provider Internal Medicine Cardiovascular Disease
DX: I48.19 Other persistent atrial fibrillation (principal); Z79.01 Long term (current) use of anticoagulants
CPT/HCPCS: 36416; 85610

== ENCOUNTER 2022-09-29 15:14 | Outpatient (RCR) | payer MEDICARE, SELFPAY ==
[2022-09-25 01:25] VITALS: BMI 29.1
[2022-09-29 15:45] LABS: INR Fingerstick 2.1; Prothrombin Time Fingerstick 24.3 SEC (11.7-14.9)
== END 2022-09-29 16:00 | disposition home or self-care (01) ==
LOC: LAB 15:14
PROVIDERS: Family Provider Family Medicine; PCP Internal Medicine; Referring Provider Internal Medicine Cardiovascular Disease; Visit Provider Internal Medicine Cardiovascular Disease
DX: I48.19 Other persistent atrial fibrillation (principal); Z79.01 Long term (current) use of anticoagulants
CPT/HCPCS: 36416; 85610

== ENCOUNTER 2022-10-31 15:03 | Outpatient (RCR) | payer MEDICARE, SELFPAY ==
[2022-10-26 08:07] VITALS: BMI 29.1
[2022-10-31 15:30] LABS: INR Fingerstick 2.2; Prothrombin Time Fingerstick 25.3 SEC (11.7-14.9)
== END 2022-10-31 18:00 | disposition home or self-care (01) ==
LOC: LAB 15:03
PROVIDERS: Family Provider Family Medicine; PCP Internal Medicine; Referring Provider Internal Medicine Cardiovascular Disease; Visit Provider Internal Medicine Cardiovascular Disease
DX: I48.19 Other persistent atrial fibrillation (principal); Z79.01 Long term (current) use of anticoagulants
CPT/HCPCS: 36416; 85610

== ENCOUNTER 2022-12-23 15:40 | Outpatient (RCR) | payer MEDICARE, SELFPAY ==
[2022-11-22 19:58] VITALS: BMI 29.1
[2022-12-23 15:50] LABS: INR Fingerstick 2.9; Prothrombin Time Fingerstick 30.9 SEC (11.7-14.9)
== END 2022-12-23 21:48 | disposition home or self-care (01) ==
LOC: LAB 15:40
PROVIDERS: Family Provider Family Medicine; PCP Internal Medicine; Referring Provider Internal Medicine Cardiovascular Disease; Visit Provider Internal Medicine Cardiovascular Disease
DX: I48.19 Other persistent atrial fibrillation (principal); Z79.01 Long term (current) use of anticoagulants
CPT/HCPCS: 36416; 85610

== ENCOUNTER 2023-01-20 14:42 | Outpatient (RCR) | payer MEDICARE, SELFPAY ==
[2022-12-23 21:50] VITALS: BMI 29.1
[2023-01-20 15:26] LABS: INR Fingerstick 2.1; Prothrombin Time Fingerstick 22.9 SEC (11.7-14.9)
== END 2023-01-22 01:12 | disposition home or self-care (01) ==
LOC: LAB 14:42
PROVIDERS: Family Provider Family Medicine; PCP Internal Medicine; Referring Provider Internal Medicine Cardiovascular Disease; Visit Provider Internal Medicine Cardiovascular Disease
DX: I48.19 Other persistent atrial fibrillation (principal); Z79.01 Long term (current) use of anticoagulants
CPT/HCPCS: 36416; 85610

== ENCOUNTER 2023-02-28 15:57 | Emergency (ER) | payer MEDICARE, SELFPAY ==
[2023-02-28 15:58] VITALS: BP 177/102; PULSE 75; RESP 18; TEMP 36.7; O2SAT 99; BMI 27.4
--- NOTE | 2023-02-28 16:16 | CT_ITS ---
EXAM: CT NECK WITH INTRAVENOUS CONTRAST CLINICAL INDICATION: swelling TECHNIQUE: Helically acquired images were obtained of the neck with intravenous contrast. This CT exam was performed using one or more of the following dose reduction techniques: automated exposure control, adjustment of the mA and/or kV according to patient size, and/or use of iterative reconstruction technique. CONTRAST: IV 75mL Isovue-370 COMPARISON: No relevant prior studies available. FINDINGS: BRAIN AND EXTRA-AXIAL SPACES: There is no mass or fluid collection identified. Gas extends up over the right mandible and right cheek. NASOPHARYNX: Unremarkable. SUPRAHYOID NECK: Unremarkable. Oropharynx, oral cavity, parapharyngeal space and retropharyngeal space are unremarkable. INFRAHYOID NECK: Unremarkable. The larynx, hypopharynx and supraglottis are unremarkable. SUBMANDIBULAR/PAROTID GLANDS: Unremarkable. Glands are normal in size. THYROID: Unremarkable. No enlarged or calcified nodules. BONES/JOINTS: No acute fracture. SOFT TISSUES: There is extensive gas seen in the supraclavicular soft tissues extending up into the neck compatible subcutaneous emphysema. The patient has a pneumomediastinum. VASCULATURE: No acute findings. LYMPH NODES: Unremarkable. No lymphadenopathy. LUNG APICES: Unremarkable as visualized. CT/Soft Tissue Neck WITH Contrast IMPRESSION: Extensive subcutaneous emphysema with gas in the soft tissues of the neck extending up over the right mandible and cheek. The patient does have a pneumomediastinum. Further evaluation with CT scan of the chest may be beneficial. Electronically Signed: Giovanny Nagy MD at 18:14 EDT ,
--- NOTE | 2023-02-28 16:16 | CT_ITS ---
EXAM: CT MAXILLOFACIAL WITH INTRAVENOUS CONTRAST CLINICAL INDICATION: Swelling TECHNIQUE: Helically acquired images were obtained of the face with intravenous contrast. This CT exam was performed using one or more of the following dose reduction techniques: automated exposure control, adjustment of the mA and/or kV according to patient size, and/or use of iterative reconstruction technique. CONTRAST: IV 75mL Isovue-370 COMPARISON: No relevant prior studies available. FINDINGS: BONES/JOINTS: Unremarkable. No displaced fracture. No discrete lytic or blastic abnormalities. SOFT TISSUES: There are extensive subcutaneous emphysema seen in the neck extending over the right mandible and right cheek. No focal subcutaneous swelling. No discrete fluid collections. ORBITS: Unremarkable. Both globes are unremarkable. Extraocular muscles are normal. Retrobulbar fat appears unremarkable. SINUSES: Unremarkable as visualized. Clear. MASTOID AIR CELLS: Unremarkable as visualized. Clear. DENTAL: No acute findings. No periodontal osseous erosion. CT/Sinus/Facial Bone WITH Contras IMPRESSION: Extensive subcutaneous emphysema with gas in the soft tissues of the neck extending up over the right mandible and cheek. There are no osseous abnormalities. Electronically Signed: Giovanny Nagy MD at 18:05 EDT ,
--- NOTE | 2023-02-28 16:18 | EDS_ITS ---
HPI History of Present Illness Chief Complaint: Allergic Reaction Narrative Narrative: 82-year-old female history of hypertension, atrial fibrillation on Coumadin, states she went to the dentist today to get a feeling in her right lower jaw. She received the numbing medication, and had the procedure performed, then states that the dentist injected more numbing medication into her face. She began experiencing right lower jaw swelling, and further neck swelling. She denies any closing of her throat, no difficulty breathing or wheezing. Additionally, she states that they did not tell her to hold her Coumadin for her dental procedure today. She has received the numbing medication previously in the past, and denies any allergies, but the dentist thought that she was having an allergic reaction to the articaine, so EMS was called and she was brought to the emergency department. 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) Chronic diastolic (congestive) heart failure Chronic neck and back pain Essential (primary) hypertension Fatigue GERD (gastroesophageal reflux disease) Hemorrhoids Hypokalemia Nonrheumatic mitral valve regurgitation Nonrheumatic tricuspid (valve) insufficiency Osteoporosis Persistent atrial fibrillation Post-menopausal Right upper limb pain Secondary pulmonary arterial hypertension Severe headache Shoulder pain SOB (shortness of breath) Weight loss Home Medications cholecalciferol (vitamin D3) 25 mcg (1,000 unit) tablet 4,000 unit PO DAILY 11/21/14 [History Last Taken 07/25/16] cyanocobalamin (vitamin B-12) 500 mcg tablet 500 mcg PO DAILY@0800 11/21/14 [History Last Taken 07/25/16] calcium carbonate 600 mg calcium (1,500 mg) tablet (Calcium) 600 mg PO DAILY 07/26/19 [History Last Taken Unknown] furosemide 40 mg tablet 40 mg PO Q OTHER DAY #90 tabs 02/22/22 [Rx Last Taken Unknown] metoprolol tartrate 100 mg tablet 100 mg PO BID #180 tabs 02/22/22 [Rx Last Taken Unknown] potassium chloride 20 mEq tablet,extended release 20 meq PO BID 3 months #180 tabs 03/11/22 [Rx Last Taken Unknown] lansoprazole 30 mg capsule,delayed release 30 mg PO DAILY #90 caps 05/12/22 [Rx Last Taken Unknown] latanoprost 0.005 % eye drops 1 drp ophthalmic (eye) QPM 05/12/22 [History Last Taken Unknown] warfarin 2 mg tablet 2 mg PO QMWF 90 days #60 tabs 09/01/22 [Rx Last Taken Unknown] codeine 10 mg-guaifenesin 200 mg/5 mL oral liquid 5 ml PO .Q8 PRN cough #473 mL 09/07/22 [Rx Last Taken Unknown] warfarin 4 mg tablet 4 mg PO SUMOWETHFRSA 90 days #78 tabs 11/23/22 [Rx Last Taken Unknown] Allergy/AdvReac Type Severity Reaction Status Date / Time articaine Allergy Swelling Verified 02/28/23 16:11 grass pollen Allergy unknown Verified 02/28/23 16:11 Family History Mother Congestive heart failure Colon cancer Father angina Asthma Grandfather Diabetes Brother Hypertension Surgical History History of cataract surgery History of open reduction and internal fixation (ORIF) procedure History of tonsillectomy s/p right shoulder surgery Social History household members: none Smoking Status: Never smoker alcohol intake: never substance use type: does not use caffeine: Yes Type: coffee Number of servings: 1 what type of physical activity do you participate in: none ROS ROS ED ROS Narrative Constitutional: No fever, no chills. HEENT: No sore throat. No neck pain. No loss of vision. No rhinorrhea. Swelling of right lower jaw, right cheek, and right side of neck Cardiovascular: No chest pain. No palpitations. No pedal edema. Respiratory: No cough, no shortness of breath. Abdominal: No abdominal pain. No nausea. No vomiting. Genitourinary: No dysuria. No hematuria. Musculoskeletal: No myalgias. No arthralgias. Neurologic: No headaches. No dizziness. No lightheadedness. Skin: No rash. No change in color. Psychiatric: No depression. No anxiety. EXAM Physical Exam Narrative Exam Narrative: Afebrile. Vital signs noted. HEENT: Normocephalic. Atraumatic. PERRL, EOMI. Neck soft and supple. No point tenderness or step off. Cardiovascular: Regular rate and rhythm. No murmurs, rubs, or gallops appreciated. Respiratory: No tachypnea. Lungs clear to auscultation bilaterally. Gastrointestinal: Abdomen soft, nontender, with normoactive bowel sounds. No rebound or guarding. Neurological: Awake. Alert. Nonfocal, nonlateralizing. Skin: No rash. Normal color. No pallor. Musculoskeletal: No pedal edema. Full range of motion extremities. Const Vital Signs: 02/28/23 15:58 02/28/23 17:00 02/28/23 18:30 Temperature 98.1 F Temperature Source Temporal Pulse Rate 75 78 76 Respiratory Rate 18 16 18 Blood Pressure 177/102 H 154/76 H 182/96 H Blood Pressure Mean 127 102 124 Pulse Ox 99 99 100 Oxygen Delivery Method Room Air Room Air Room Air 02/28/23 19:00 Temperature Temperature Source Pulse Rate 83 Respiratory Rate 18 Blood Pressure 173/82 H Blood Pressure Mean 112 Pulse Ox 99 Oxygen Delivery Method Room Air MDM MDM MDM Narrative Medical decision making narrative: In the differential diagnosis is anaphylaxis versus local swelling from articaine, versus hematoma as the patient is on Coumadin and had a dental procedure performed without holding it. I do feel that CT imaging is indicated and I will check a CBC and BMP to look at her creatinine to see if she can handle a dye load. I will also check her INR. Her pulse ox is 99% on room air and she does not feel her throat closing. I do not feel that epinephrine is indicated. I also do not feel that she is necessarily having an allergic reaction where Benadryl and steroids are needed. However, for good measure she will be administered 25 mg of Benadryl IV. I reviewed the patient's laboratory work, she has normal white count of 4.5, hemoglobin normal at 14.1, hematocrit 44.4, platelet count normal at 162. Her INR is therapeutic at 2.9. Review of her basic metabolic panel shows BUN of 25 with creatinine 0.82. Chloride is slightly elevated at 110 which I think is nonspecific. She has a normal sodium and a normal potassium at 143 and 4.3 respectively. BUN is slightly elevated at 25. She did have asymptomatic elevated blood pressure, and she was given her evening dose of metoprolol tartrate 100 mg orally here in the emergency department. In review of her CT scans of the face and soft tissue neck with IV contrast, there is no evidence of a fluid collection or hematoma, however there is extensive subcutaneous emphysema in the jaw and in the neck tracking down towards the mediastinum. Radiology is recommending CT scan of the chest without contrast. This was obtained. I did asked the patient whether or not she had coughing spells, and she states that she has GERD and has had a chronic cough, and may have had a coughing spell yesterday but nothing excessively forceful. CT of the chest shows no evidence of an esophageal tear. There is no evidence of pneumothorax. At this point in time, patient was discussed with the [facility] transfer line. CT scans were uploaded, and have been reviewed by CT surgery. They have deferred to medicine. She is currently awaiting a bed. She remains on the transfer waiting list. Patient is in stable condition. She will be [facility] to ensure transfer. She may require admission here as she awaits a bed. History & Record Review Discussion w/independent historian: Patient Additional record(s) reviewed:: Prior ED visit Lab Data Attestation: I reviewed the patient's lab results. Labs: Laboratory Results - last 24 hr 02/28/23 02/28/23 02/28/23 16:37 16:37 16:37 WBC 4.5 RBC 4.79 Hgb 14.1 Hct 44.4 MCV 92.7 MCH 29.4 MCHC 31.8 L RDW Std Deviation 44.3 H RDW Coeff of Roger 13.1 Plt Count 162 MPV 9.5 Immature Gran % (Auto) 0.200 Neut % (Auto) 62.4 Lymph % (Auto) 20.2 Creek % (Auto) 12.1 H Eos % (Auto) 4.0 Baso % (Auto) 1.1 H Absolute Neuts (auto) 2.8 Absolute Lymphs (auto) 0.90 Nucleated RBC % 0 PT 30.3 H INR 2.9 Sodium 143 Potassium 4.3 Chloride 110 H Carbon Dioxide 30.0 Anion Gap 3 L BUN 25 H Creatinine 0.82 Estim Creat Clear Calc 49.24 Est GFR (MDRD) Af Amer 87 Est GFR (MDRD) Non-Af 72 BUN/Creatinine Ratio 30.6 H Glucose 102 Calcium 9.1 Radiography Diagnostic Testing: Clinical Impression(s) from Imaging Studies Facial/Sinus 02/28/23 16:16 IMPRESSION: Extensive subcutaneous emphysema with gas in the soft tissues of the neck extending up over the right mandible and cheek. There are no osseous abnormalities. Electronically Signed: Giovanny Nagy MD at 18:05 EDT , Soft Tissue Neck CT 02/28/23 16:16 IMPRESSION: Extensive subcutaneous emphysema with gas in the soft tissues of the neck extending up over the right mandible and cheek. The patient does have a pneumomediastinum. Further evaluation with CT scan of the chest may be beneficial. Electronically Signed: Giovanny Nagy MD at 18:14 EDT , Chest CT 02/28/23 18:23 IMPRESSION: 1. Pneumomediastinum with gas extending up into the subcutaneous tissues of the neck. There is no pneumothorax identified. 2. Minimal scarring in the lung bases. There is no focal consolidation or effusion. Electronically Signed: Giovanny Nagy MD at 19:19 EDT , Discharge Plan Triage Chief Complaint: Allergic Reaction ED Provider: Steven York Dx/Rx/DC Orders Prescriptions: No Action calcium carbonate [Calcium 600] 600 mg calcium (1,500 mg) tablet 600 mg PO DAILY furosemide 40 mg tablet 40 mg PO Q OTHER DAY Qty: 90 2RF metoprolol tartrate 100 mg tablet 100 mg PO BID Qty: 180 4RF warfarin 4 mg tablet 4 mg PO SUMOWETHFRSA 90 Days Qty: 78 3RF Protocol: Dose Management Condition: Monday Dose/Route: 4 mg Instruction: 1 x 4 mg tablet Condition: Monday Dose/Route: 4 mg Instruction: 1 x 4 mg tablet Condition: Monday Dose/Route: 4 mg Instruction: 1 x 4 mg tablet Condition: Monday Dose/Route: 2 mg Instruction: 1 x 2 mg tablet Condition: Dose/Route: 4 mg Instruction: 1 x 4 mg tablet Condition: Monday Dose/Route: 4 mg Instruction: 1 x 4 mg tablet Condition: Monday Dose/Route: 4 mg Instruction: 1 x 4 mg tablet Protocol Text: Adjustment Start Date: Monday01/20/23 INR Value: 2.1 INR Date: 01/20/23 Recheck Date: 02/17/23 latanoprost 0.005 % drops 1 drp ophthalmic (eye) QPM lansoprazole 30 mg capsule,delayed release(DR/EC) 30 mg PO DAILY Qty: 90 3RF codeine-guaifenesin 10-200 mg/5 mL liquid 5 ml PO .Q8 PRN (Reason: cough) Qty: 473 0RF cyanocobalamin (vitamin B-12) 500 MCG tablet 500 mcg PO DAILY@0800 Label Comments: supplement cholecalciferol (vitamin D3) 1,000 UNIT tablet 4,000 unit PO DAILY Label Comments: supplement potassium chloride 20 mEq tablet extended release 20 meq PO BID 90 Days Qty: 180 3RF warfarin 2 mg tablet 2 mg PO QMWF 90 Days Qty: 60 3RF Protocol: Dose Management Condition: Monday Dose/Route: 4 mg Instruction: 1 x 4 mg tablet Condition: Monday Dose/Route: 4 mg Instruction: 1 x 4 mg tablet Condition: Monday Dose/Route: 4 mg Instruction: 1 x 4 mg tablet Condition: Monday Dose/Route: 2 mg Instruction: 1 x 2 mg tablet Condition: Dose/Route: 4 mg Instruction: 1 x 4 mg tablet Condition: Monday Dose/Route: 4 mg Instruction: 1 x 4 mg tablet Condition: Monday Dose/Route: 4 mg Instruction: 1 x 4 mg tablet Protocol Text: Adjustment Start Date: Monday01/20/23 INR Value: 2.1 INR Date: 01/20/23 Recheck Date: 02/17/23 Primary Care Provider: Justin Hernandes Referrals: Justin Hernandes MD [Primary Care Provider] -
[2023-02-28] MEDS: DiphenhydrAMINE 50 MG/ML Syringe 25 MG IV (16:35)
[2023-02-28 16:46] LABS: Absolute Neutrophil Count 2.8 X10^3/uL (2.0-7.7); Basophil# 0.05 X10^3/uL; Basophil% 1.1 % (0-1); Eosinophil# 0.18 X10^3/uL; Hematocrit 44.4 % (37-47); Hemoglobin 14.1 g/dL (12.0-15.0); Lymphocyte % 20.2 % (19-41); Mean Corp Hgb Conc 31.8 g/dL (32-36); Mean Corpuscular Hgb 29.4 pg (27.0-32.0); Mean Corpuscular Volume 92.7 fL (81-99); Mean Platelet Vol. 9.5 fl (6.2-12.0); Monocyte# 0.54 X10^3/uL; Monocyte% 12.1 % (0-10); NRBC Flagged by Analyzer 0 % (0-5); Neutrophil # 2.78 X10^3/uL (2.7-7.7); Neutrophil % 62.4 % (47-70); Platelet Count 162 K/mm3 (150-450); RBC Distribution Width CV 13.1 % (11.6-14.6); RBC Distribution Width SD 44.3 fl (35.1-43.9); Red Blood Count 4.79 M/mm3 (4.2-5.4); White Blood Count 4.5 K/mm3 (4.4-11.0)
[2023-02-28 17:00] VITALS: BP 154/76; PULSE 78; RESP 16; O2SAT 99
[2023-02-28 17:00] LABS: Anion Gap 3 (5-15); BUN 25 mg/dL (7-18); BUN/Creat Ratio 30.6 RATIO (10-20); Calcium,Total 9.1 mg/dL (8.5-10.1); Chloride 110 mmol/L (98-107); Creatinine, Serum 0.82 mg/dL (0.55-1.02); EST Glomerular Filtration Rate 72 mL/min (>60); Est Glom Filt Rate - Afr Amer 87 mL/min (>60); Estimated Creatinine Clearance 49.24 ml/min; Glucose 102 mg/dL (74-106); Potassium 4.3 mmol/L (3.5-5.1); Sodium Level 143 mmol/L (136-145)
[2023-02-28 17:01] LABS: International Normalized Ratio 2.9; Prothrombin Time (Protime)PT. 30.3 SECONDS (11.7-14.9)
--- NOTE | 2023-02-28 18:23 | CT_ITS ---
EXAM: CT CHEST WITHOUT INTRAVENOUS CONTRAST CLINICAL INDICATION: pneumomediastinum TECHNIQUE: Helically acquired images were obtained of the chest without intravenous contrast. This CT exam was performed using one or more of the following dose reduction techniques: automated exposure control, adjustment of the mA and/or kV according to patient size, and/or use of iterative reconstruction technique. CONTRAST: IV 100mL Isovue-370 COMPARISON: No relevant prior studies available. FINDINGS: LUNGS AND PLEURAL SPACES: There is scarring within the lung bases. There is no evidence of a pneumothorax. No mass. There is no effusion identified. HEART: Coronary artery calcifications present. Heart size is normal. No pericardial effusion. MEDIASTINUM: There is a pneumomediastinum with gas extending up into the supraclavicular soft tissues in the soft tissues of the neck. No mediastinal or hilar adenopathy. Esophagus is unremarkable. No hiatal hernia. THYROID: Unremarkable. No thyroid lesions. BONES/JOINTS: See above. VASCULATURE: See above. CT/Chest without Contrast IMPRESSION: 1. Pneumomediastinum with gas extending up into the subcutaneous tissues of the neck. There is no pneumothorax identified. 2. Minimal scarring in the lung bases. There is no focal consolidation or effusion. Electronically Signed: Giovanny Nagy MD at 19:19 EDT ,
[2023-02-28 18:30] VITALS: BP 182/96; PULSE 76; RESP 18; O2SAT 100
[2023-02-28 19:00] VITALS: BP 173/82; PULSE 83; RESP 18; O2SAT 99
--- NOTE | 2023-02-28 19:49 | ED.RN ---
Assisted pt with making phone calls to family. Pt is resting comfortably in bed, denies further needs.
[2023-02-28] MEDS: Metoprolol Tartrate 100 MG Tablet PO (22:50)
[2023-03-01] VITALS (8 sets, daily range): BP systolic 125–157; BP diastolic 69–89; PULSE 64–94; RESP 15–23; O2SAT 92–97
--- NOTE | 2023-03-01 09:47 | ED.RN ---
PER DR. BACK, WE WILL CHECK IN WITH [facility] AT NOON FOR BED AVAILABILITY, WHEN ASKED ABOUT HOSPITAL ADMISSION
--- NOTE | 2023-03-01 12:19 | ED.RN ---
CALLED [facility] AND THEY ARE UNABLE TO GIVE A ETA WHEN THEY WILL HAVE A BED AVAILABLE. PHYSICIAN NOTIFIED
== END 2023-03-01 13:06 | disposition home or self-care (01) ==
PROVIDERS: Emergency Provider Emergency Medicine; PCP Internal Medicine; Visit Provider Emergency Medicine
DX: T79.7XXA Traumatic subcutaneous emphysema, initial encounter (principal); I11.0 Hypertensive heart disease with heart failure; I50.32 Chronic diastolic (congestive) heart failure; I48.91 Unspecified atrial fibrillation; Z79.01 Long term (current) use of anticoagulants; X58.XXXA Exposure to other specified factors, initial encounter
CPT/HCPCS: 70487; 70491; 71250; 80048; 85025; 85610; 96374; 99285; Q9967

== ENCOUNTER 2023-04-06 15:41 | Outpatient (RCR) | payer MEDICARE, SELFPAY ==
[2023-01-22 01:12] VITALS: BMI 29.1
[2023-04-06 15:53] LABS: INR Fingerstick 2.8; Prothrombin Time Fingerstick 30.3 SEC (11.7-14.9)
== END 2023-04-24 18:00 | disposition home or self-care (01) ==
LOC: LAB 15:41
PROVIDERS: Family Provider Family Medicine; PCP Internal Medicine; Referring Provider Internal Medicine Cardiovascular Disease; Visit Provider Internal Medicine Cardiovascular Disease
DX: I48.19 Other persistent atrial fibrillation (principal); Z79.01 Long term (current) use of anticoagulants
CPT/HCPCS: 36416; 85610

== ENCOUNTER 2023-04-14 13:18 | Emergency (ER) | payer MEDICARE, SELFPAY ==
[2023-04-14 13:20] VITALS: BP 174/97; PULSE 90; RESP 18; TEMP 36.6; O2SAT 100; BMI 25.6
[2023-04-14] MEDS: 0.9% Normal Saline 1,000 ML 1000 ML IV (15:13)
[2023-04-14] MEDS: Acetaminophen 500 MG Tablet 1000 MG PO (15:13)
[2023-04-14 15:21] LABS: Absolute Lymphocyte Count 0.77 X10^3/uL (0.83-4.51); Absolute Neutrophil Count 3.2 X10^3/uL (2.0-7.7); Basophil# 0.06 X10^3/uL; Basophil% 1.2 % (0-1); Hematocrit 44.8 % (37-47); Hemoglobin 14.5 g/dL (12.0-15.0); Lymphocyte # 0.77 X10^3/ul (0.83-4.51); Lymphocyte % 15.4 % (19-41); Mean Corp Hgb Conc 32.4 g/dL (32-36); Mean Corpuscular Hgb 29.5 pg (27.0-32.0); Mean Corpuscular Volume 91.1 fL (81-99); Mean Platelet Vol. 9.3 fl (6.2-12.0); Monocyte# 0.74 X10^3/uL; Monocyte% 14.8 % (0-10); NRBC Flagged by Analyzer 0 % (0-5); Neutrophil # 3.23 X10^3/uL (2.7-7.7); Neutrophil % 64.4 % (47-70); Platelet Count 183 K/mm3 (150-450); RBC Distribution Width CV 13.2 % (11.6-14.6); RBC Distribution Width SD 44.1 fl (35.1-43.9); Red Blood Count 4.92 M/mm3 (4.2-5.4)
[2023-04-14 15:37] LABS: ALB/GLOB Ratio 0.9 RATIO (0.9-2.4); AST(SGOT) 27 U/L (15-37); Alanine Aminotransfer ALT/SGPT 21 U/L (13-56); Albumin, Serum 3.3 g/dL (3.2-5.0); Alkaline Phosphatase 84 U/L (45-117); Anion Gap 4 (5-15); BUN 12 mg/dL (7-18); BUN/Creat Ratio 15.9 RATIO (10-20); Calcium,Total 8.9 mg/dL (8.5-10.1); Chloride 106 mmol/L (98-107); Creatinine, Serum 0.75 mg/dL (0.55-1.02); EST Glomerular Filtration Rate 78 mL/min (>60); Est Glom Filt Rate - Afr Amer 95 mL/min (>60); Estimated Creatinine Clearance 40.38 ml/min; Globulin 3.8 g/dL (2.2-4.2); Glucose 92 mg/dL (74-106); Lipase 31 U/L (13-75); Potassium 4.3 mmol/L (3.5-5.1); Protein, Total 7.1 g/dL (6.4-8.2); Sodium Level 138 mmol/L (136-145)
--- NOTE | 2023-04-14 16:00 | EX.ED.DYSGE1 ---
HPI History of Present Illness Chief Complaint: Constipation Narrative Narrative: Patient is an 82-year-old female with history of GERD, atrial fibrillation on Coumadin who presents to the emergency department for 9 days of constipation, right-sided back pain. Patient states she thought she hurt her back while pulling a mower, she was seen at urgent care and was diagnosed with a lumbar strain. Patient states the back is continued to hurt, she also noticed that she does not have a bowel movement 8 days. She states she is normally regular, she has never had a colonoscopy. She states that she is still passing gas however feels like nothing is low on her stomach. She is still continue to have the right-sided flank pain. She denies any fevers or chills. 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) Chronic diastolic (congestive) heart failure Chronic neck and back pain Constipation Essential (primary) hypertension Fatigue GERD (gastroesophageal reflux disease) Hemorrhoids Hypokalemia Lumbar strain Nonrheumatic mitral valve regurgitation Nonrheumatic tricuspid (valve) insufficiency Osteoporosis Persistent atrial fibrillation Post-menopausal Right upper limb pain Secondary pulmonary arterial hypertension Severe headache Shoulder pain SOB (shortness of breath) Weight loss Home Medications cholecalciferol (vitamin D3) 25 mcg (1,000 unit) tablet 4,000 unit PO DAILY 11/21/14 [History Last Taken 07/25/16] cyanocobalamin (vitamin B-12) 500 mcg tablet 500 mcg PO DAILY@0800 11/21/14 [History Last Taken 07/25/16] calcium carbonate 600 mg calcium (1,500 mg) tablet (Calcium) 600 mg PO DAILY 07/26/19 [History Last Taken Unknown] furosemide 40 mg tablet 40 mg PO Q OTHER DAY #90 tabs 02/22/22 [Rx Last Taken Unknown] potassium chloride 20 mEq tablet,extended release 20 meq PO BID 3 months #180 tabs 03/11/22 [Rx Last Taken Unknown] lansoprazole 30 mg capsule,delayed release 30 mg PO DAILY #90 caps 05/12/22 [Rx Last Taken Unknown] latanoprost 0.005 % eye drops 1 drp ophthalmic (eye) QPM 05/12/22 [History Last Taken Unknown] codeine 10 mg-guaifenesin 200 mg/5 mL oral liquid 5 ml PO .Q8 PRN cough #473 mL 09/07/22 [Rx Last Taken Unknown] warfarin 4 mg tablet 4 mg PO SUMO 90 days #78 tabs 11/23/22 [Rx Last Taken Unknown] metoprolol tartrate 100 mg tablet 100 mg PO BID #180 tabs 03/15/23 [Rx Last Taken Unknown] benzonatate 100 mg capsule 100 mg PO BID PRN cough #60 caps 03/24/23 [Rx Last Taken Unknown] warfarin 2 mg tablet 2 mg PO .TUES 03/24/23 [History Last Taken Unknown] Allergy/AdvReac Type Severity Reaction Status Date / Time articaine Allergy Swelling Verified 04/14/23 13:23 grass pollen Allergy unknown Verified 04/14/23 13:23 Family History Mother Congestive heart failure Colon cancer Father angina Asthma Grandfather Diabetes Brother Hypertension Surgical History History of cataract surgery History of open reduction and internal fixation (ORIF) procedure History of tonsillectomy s/p right shoulder surgery Social History household members: none Smoking Status: Never smoker alcohol intake: never substance use type: does not use caffeine: Yes Type: coffee Number of servings: 1 what type of physical activity do you participate in: none ROS ROS ED ROS Narrative Constitutional: Negative for fever, chills, weight loss, weakness Eyes: Negative for vision loss, vision change, double vision ENT: Negative for any sore throat, ear pain, congestion Cardiovascular: Negative for any chest pain, tightness, palpitations Respiratory: Negative for any cough, sputum production, hemoptysis, dyspnea, dyspnea on exertion, orthopnea Gastrointestinal: Negative for any nausea, vomiting, diarrhea, blood in stool, blood in vomit. Positive constipation : Negative for any urinary frequency, dysuria, retention, blood in urine Muscle skeletal: Negative for any muscle joint pain, stiffness, myalgias, arthralgias, neck pain. Positive for right lower back pain Neurological: Negative for any headache, syncope, numbness or tingling, dizziness Skin: Negative for any rashes, lumps, itching, abrasions, lacerations Psychiatric: Negative for any depression, anxiety, stress, suicidal ideation, homicidal ideation Hematologic: Negative for any easy bruising, excessive bruising, easy bleeding Allergies: Negative for any eczema, hives, rash EXAM Physical Exam Narrative Exam Narrative: Vital signs reviewed. Patient appeared to have difficulty moving, patient has a pain in the right lower back that radiates to the right front. HEET: Head normocephalic atraumatic, TMs clear bilaterally. Posterior pharynx is clear, moist mucous membranes. Nares clear bilaterally. Neck: Supple with no lymphadenopathy or tenderness. No signs of meningismus, negative jolt sign. Cardiac: Regular rate and rhythm no murmurs gallops or rubs, equal peripheral pulses bilaterally. Respiratory: Lungs clear to auscultation bilaterally. No chest tenderness. Abdomen: Soft,nondistended. No abdominal bruit or pulsatile masses. No hepatosplenomegaly. Patient has tenderness to the periumbilical area, right lower quadrant. Extremities: No peripheral edema, no signs of gross trauma or deformity. Active full range of motion of all extremities. Neuro: Cranial nerves II through XII intact, no focal neurological deficits. Skin: Clean dry and intact with no rash, purpura, petechiae, vesicles or pustules. Backs/flank: No CVA tenderness, no midline spinal tenderness, no deformity. Psych: Normal mood and affect. No SI, HI or acute psychosis. Const Vital Signs: 04/14/23 13:20 Temperature 97.8 F Temperature Source Temporal Pulse Rate 90 Respiratory Rate 18 Blood Pressure 174/97 H Blood Pressure Mean 122 Pulse Ox 100 Oxygen Delivery Method Room Air Positive well nourished and well developed General Appearance ED: well developed MDM [facility] Lab Data Labs: Laboratory Results - last 24 hr 04/14/23 04/14/23 15:12 16:00 WBC 5.0 RBC 4.92 Hgb 14.5 Hct 44.8 MCV 91.1 MCH 29.5 MCHC 32.4 RDW Std Deviation 44.1 H RDW Coeff of Roger 13.2 Plt Count 183 MPV 9.3 Immature Gran % (Auto) 0.200 Neut % (Auto) 64.4 Lymph % (Auto) 15.4 L [place] % (Auto) 14.8 H Eos % (Auto) 4.0 Baso % (Auto) 1.2 H Absolute Neuts (auto) 3.2 Absolute Lymphs (auto) 0.77 L Nucleated RBC % 0 Sodium 138 Potassium 4.3 Chloride 106 Carbon Dioxide 28.0 Anion Gap 4 L BUN 12 Creatinine 0.75 Estim Creat Clear Calc 40.38 Est GFR (MDRD) Af Amer 95 Est GFR (MDRD) Non-Af 78 BUN/Creatinine Ratio 15.9 Glucose 92 Calcium 8.9 Total Bilirubin 0.90 AST 27 ALT 21 Alkaline Phosphatase 84 Total Protein 7.1 Albumin 3.3 Globulin 3.8 Albumin/Globulin Ratio 0.9 Lipase 31 Urine Color Yellow Urine Clarity Clear Urine pH 7.0 Ur Specific [place] 1.010 Urine Protein Negative Urine Glucose (UA) Normal Urine Ketones 15 H Urine Occult Blood 25 H Urine Nitrite Negative Urine Bilirubin Negative Urine Urobilinogen Normal Ur Leukocyte Esterase 25 H Urine RBC 0-5 SEEN Urine WBC 0 SEEN Ur Squamous Epith Cells 0 SEEN Urine Bacteria 0 SEEN Urine Mucus 0 SEEN Radiography Diagnostic Testing: Clinical Impression(s) from Imaging Studies Abdomen/Pelvis CT 04/14/23 16:08 IMPRESSION: Nonspecific ileus with extensive diffuse fecal retention throughout the colon. No evidence for small bowel obstruction or other acute abnormality Electronically Signed: Jordan Tran MD at 16:27 EDT , Treatment and Re-Evaluation :: All radiologic examinations were read, reviewed by the emergency department attending. From these reads, a plan of care will be put in place. Patient presents to the emergency department with complaints of abdominal pain, constipation, right-sided back pain. Patient will receive basic abdominal labs as well as CT scan of the abdomen pelvis. . This will be to rule out any mass, bowel obstruction, acute appendicitis, cholecystitis. This is likely, that the patient has a muscle skeletal pain is unable to bear down and have a bowel movement Patient had a full work-up, patient CBC was unremarkable, chemistries were unremarkable. Patient CT of the abdomen pelvis shows nonspecific ileus with extensive diffuse fecal retention throughout the colon. No evidence of any bowel obstruction. Secondary to this finding of constipation, I did speak with the patient, she would like an enema. After the enema, patient had positive results. Patient states she feels much better and like to be discharged home. At this time, there is no evidence of any acute infectious process, no bowel obstruction. Patient continue the MiraLAX, and follow-up outpatient. Is likely the patient has a lumbar strain and this is causing her to not be able to strain to have a bowel movement. Patient is happy with plan of care, all questions answered. Discharge Plan Triage Chief Complaint: Constipation ED Midlevel Provider: Gabino Colon ED Provider: Katelyn Chavez Dx/Rx/DC Orders Clinical Impression: Acute constipation, Acute lumbar myofascial strain Instructions: ED Constipation (Adult) Prescriptions: No Action calcium carbonate [Calcium 600] 600 mg calcium (1,500 mg) tablet 600 mg PO DAILY furosemide 40 mg tablet 40 mg PO Q OTHER DAY Qty: 90 2RF warfarin 4 mg tablet 4 mg PO WE 90 Days Qty: 78 3RF Protocol: Dose Management Condition: Monday Dose/Route: 4 mg Instruction: 1 x 4 mg tablet Condition: Monday Dose/Route: 4 mg Instruction: 1 x 4 mg tablet Condition: Monday Dose/Route: 4 mg Instruction: 1 x 4 mg tablet Condition: Monday Dose/Route: 2 mg Instruction: 1 x 2 mg tablet Condition: Dose/Route: 4 mg Instruction: 1 x 4 mg tablet Condition: Monday Dose/Route: 4 mg Instruction: 1 x 4 mg tablet Condition: Monday Dose/Route: 4 mg Instruction: 1 x 4 mg tablet Protocol Text: Adjustment Start Date: 04/06/23 INR Value: 2.8 INR Date: 04/06/23 Recheck Date: 05/04/23 latanoprost 0.005 % drops 1 drp ophthalmic (eye) QPM lansoprazole 30 mg capsule,delayed release(DR/EC) 30 mg PO DAILY Qty: 90 3RF codeine-guaifenesin 10-200 mg/5 mL liquid 5 ml PO .Q8 PRN (Reason: cough) Qty: 473 0RF warfarin 2 mg tablet 2 mg PO . Protocol: Dose Management Condition: Monday Dose/Route: 4 mg Instruction: 1 x 4 mg tablet Condition: Monday Dose/Route: 4 mg Instruction: 1 x 4 mg tablet Condition: Monday Dose/Route: 4 mg Instruction: 1 x 4 mg tablet Condition: Monday Dose/Route: 2 mg Instruction: 1 x 2 mg tablet Condition: Dose/Route: 4 mg Instruction: 1 x 4 mg tablet Condition: Monday Dose/Route: 4 mg Instruction: 1 x 4 mg tablet Condition: Monday Dose/Route: 4 mg Instruction: 1 x 4 mg tablet Protocol Text: Adjustment Start Date: 04/06/23 INR Value: 2.8 INR Date: 04/06/23 Recheck Date: 05/04/23 benzonatate 100 mg capsule 100 mg PO BID PRN (Reason: cough) Qty: 60 1RF cyanocobalamin (vitamin B-12) 500 MCG tablet 500 mcg PO DAILY@0800 Patient Comments: supplement cholecalciferol (vitamin D3) 1,000 UNIT tablet 4,000 unit PO DAILY Patient Comments: supplement potassium chloride 20 mEq tablet extended release 20 meq PO BID 90 Days Qty: 180 3RF metoprolol tartrate 100 mg tablet 100 mg PO BID Qty: 180 4RF Primary Care Provider: Justin Hernandes Referrals: Justin Hernandes MD [Primary Care Provider] - Activity Restrictions/Additional Instructions: Maintain hydration. Disposition Disposition: Home, Self Care
--- NOTE | 2023-04-14 16:08 | CT_ITS ---
STUDY: CT ABDOMEN AND PELVIS WITH CONTRAST REASON FOR EXAM: Female, 82 years old. abdominal pain RADIATION DOSAGE (If Supplied By Facility): CTDIvol = ( 15.06 ) mGy, DLP = ( 674.38 ) mGycm TECHNIQUE: Transaxial images were obtained from the dome of the diaphragm to the symphysis pubis without oral contrast. IV 100mL Isovue-300 was administered. Sagittal and coronal images were reconstructed. Individualized dose optimization techniques were used for this CT. COMPARISON: None. FINDINGS: Minor chronic bibasilar interstitial thickening.. Heart is enlarged. No discrete coronary artery calcification observed Liver is normal in size. There are 2 tiny cysts. Bile ducts are not dilated.. Normal gallbladder and extrahepatic biliary system. Normal spleen. Normal pancreas. Normal bilateral adrenal glands. No evidence for renal obstruction. Tiny cortical cyst in left kidney which will not require additional imaging. Normal visualized stomach. Normal small intestine. Diffuse colonic ileus with extensive fecal retention throughout. The appendix is visualized and appears normal. Atherosclerotic changes of the aorta without evidence for aneurysm. Normal inferior vena cava. Normal retroperitoneum. Normal urinary bladder. Normal abdominal wall. Lumbar spine demonstrates minor degenerative change. Old compression fracture of T12 CT/Abdomen/Pelvis W IV Cont ONLY IMPRESSION: Nonspecific ileus with extensive diffuse fecal retention throughout the colon. No evidence for small bowel obstruction or other acute abnormality Electronically Signed: Jordan Tran MD at 16:27 EDT ,
[2023-04-14 16:27] LABS: Bacteria 0 SEEN /hpf (None Seen); Mucous, Urine 0 SEEN /hpf (<or=2+); Squamous Epithelial Cells - UA 0 SEEN /hpf (5-10); White Blood Cells 0 SEEN /hpf (0-5)
[2023-04-14 16:44] LABS: Color, Urine Yellow (Yellow); Glucose, Dipstick Normal (Normal); Ketone-Dipstick 15 mg/dl (Negative); Leukocyte Esterase-Dipstick 25 /ul (Negative); Nitrite-Dipstick Negative (Negative); Occult Blood-Urine 25 /ul (Negative); Protein-Dipstick Negative (Negative); Urine Bilirubin Dipstick Negative (Negative); Urine Clarity Clear (Clear); Urine Urobilinogen Normal (Normal)
[2023-04-14 16:51] LABS: Red Blood Cells-Urine 0-5 SEEN /hpf (0-5)
[2023-04-14 19:06] VITALS: BP 137/71; PULSE 67; RESP 16; O2SAT 97
== END 2023-04-14 19:07 | disposition home or self-care (01) ==
PROVIDERS: Nurse Practitioner; Emergency Provider Emergency Medicine; PCP Internal Medicine; Visit Provider Emergency Medicine
DX: K59.00 Constipation, unspecified (principal); I11.0 Hypertensive heart disease with heart failure; I50.32 Chronic diastolic (congestive) heart failure; I48.91 Unspecified atrial fibrillation; S39.012A Strain of muscle, fascia and tendon of lower back, initial encounter; Z79.01 Long term (current) use of anticoagulants; X50.0XXA Overexertion from strenuous movement or load, initial encounter; Y93.H2 Activity, gardening and landscaping
CPT/HCPCS: 74177; 80053; 81001; 83690; 85025; 96360; 99285; J7030; A4216

== ENCOUNTER 2023-05-09 15:11 | Outpatient (RCR) | payer MEDICARE, SELFPAY ==
[2023-04-25 00:28] VITALS: BMI 29.1
[2023-05-09 15:25] LABS: INR Fingerstick 3.5; Prothrombin Time Fingerstick 36.6 SEC (11.7-14.9)
== END 2023-05-09 18:00 | disposition home or self-care (01) ==
LOC: LAB 15:11
PROVIDERS: Family Provider Family Medicine; PCP Internal Medicine; Referring Provider Internal Medicine Cardiovascular Disease; Visit Provider Internal Medicine Cardiovascular Disease
DX: I48.19 Other persistent atrial fibrillation (principal); Z79.01 Long term (current) use of anticoagulants
CPT/HCPCS: 36416; 85610

== ENCOUNTER 2023-06-02 15:33 | Outpatient (RCR) | payer MEDICARE, SELFPAY ==
[2023-05-25 22:30] VITALS: BMI 29.1
[2023-06-02 16:54] LABS: International Normalized Ratio 2.4; Prothrombin Time (Protime)PT. 26.3 SECONDS (11.7-14.9)
== END 2023-06-02 18:00 | disposition home or self-care (01) ==
LOC: LAB 15:33
PROVIDERS: Family Provider Family Medicine; PCP Internal Medicine; Referring Provider Internal Medicine Cardiovascular Disease; Visit Provider Internal Medicine Cardiovascular Disease
DX: I48.19 Other persistent atrial fibrillation (principal); Z79.01 Long term (current) use of anticoagulants
CPT/HCPCS: 36415; 85610

== ENCOUNTER 2023-07-21 15:44 | Outpatient (RCR) | payer MEDICARE, SELFPAY ==
[2023-06-25 01:58] VITALS: BMI 29.1
[2023-07-21 16:00] LABS: Prothrombin Time Fingerstick 21.8 SEC (11.7-14.9)
== END 2023-07-21 18:00 | disposition home or self-care (01) ==
LOC: LAB 15:44
PROVIDERS: Family Provider Family Medicine; PCP Internal Medicine; Referring Provider Internal Medicine Cardiovascular Disease; Visit Provider Internal Medicine Cardiovascular Disease
DX: Z79.01 Long term (current) use of anticoagulants (principal); I48.19 Other persistent atrial fibrillation
CPT/HCPCS: 36416; 85610

== ENCOUNTER 2023-08-24 15:48 | Outpatient (RCR) | payer MEDICARE, SELFPAY ==
[2023-07-25 23:20] VITALS: BMI 29.1
[2023-08-24 15:57] LABS: INR Fingerstick 1.8; Prothrombin Time Fingerstick 19.7 SEC (11.7-14.9)
== END 2023-08-24 18:00 | disposition home or self-care (01) ==
LOC: LAB 15:48
PROVIDERS: Family Provider Family Medicine; PCP Internal Medicine; Referring Provider Internal Medicine Cardiovascular Disease; Visit Provider Internal Medicine Cardiovascular Disease
DX: Z79.01 Long term (current) use of anticoagulants (principal); I48.91 Unspecified atrial fibrillation
CPT/HCPCS: 36416; 85610

== ENCOUNTER 2023-09-21 15:31 | Outpatient (RCR) | payer MEDICARE, SELFPAY ==
[2023-08-25 03:26] VITALS: BMI 29.1
[2023-09-21 15:47] LABS: INR Fingerstick 2.5; Prothrombin Time Fingerstick 26.7 SEC (11.7-14.9)
== END 2023-09-24 18:00 | disposition home or self-care (01) ==
LOC: LAB 15:31
PROVIDERS: Family Provider Family Medicine; PCP Internal Medicine; Referring Provider Internal Medicine Cardiovascular Disease; Visit Provider Internal Medicine Cardiovascular Disease
DX: Z79.01 Long term (current) use of anticoagulants (principal); I48.91 Unspecified atrial fibrillation
CPT/HCPCS: 36416; 85610

== ENCOUNTER 2023-11-09 15:50 | Outpatient (RCR) | payer MEDICARE, SELFPAY ==
[2023-09-24 20:34] VITALS: BMI 29.1
[2023-11-10 11:01] LABS: INR Fingerstick 2.1; Prothrombin Time Fingerstick 21.6 SEC (11.7-14.9)
== END 2023-11-23 18:00 | disposition home or self-care (01) ==
LOC: LAB 15:50
PROVIDERS: Family Provider Family Medicine; PCP Internal Medicine; Referring Provider Internal Medicine Cardiovascular Disease; Visit Provider Internal Medicine Cardiovascular Disease
DX: Z79.01 Long term (current) use of anticoagulants (principal); I48.91 Unspecified atrial fibrillation
CPT/HCPCS: 36416; 85610

== ENCOUNTER 2023-12-15 15:15 | Outpatient (RCR) | payer MEDICARE, SELFPAY ==
[2023-11-23 22:28] VITALS: BMI 29.1
[2023-12-15 15:46] LABS: Prothrombin Time Fingerstick 39.2 SEC (11.7-14.9)
[2023-12-15 17:02] LABS: Prothrombin Time (Protime)PT. 42.6 SECONDS (11.7-14.9)
[2023-12-15 17:06] LABS: International Normalized Ratio 4.5
== END 2023-12-23 18:00 | disposition home or self-care (01) ==
LOC: LAB 15:15
PROVIDERS: Family Provider Family Medicine; PCP Internal Medicine; Referring Provider Internal Medicine Cardiovascular Disease; Visit Provider Internal Medicine Cardiovascular Disease
DX: Z79.01 Long term (current) use of anticoagulants (principal); I48.91 Unspecified atrial fibrillation
CPT/HCPCS: 36415; 36416; 85610

== ENCOUNTER → 2024-01-04 | Outpatient (CLI) | payer MEDICARE, SELFPAY ==
[2024-01-04 14:11] LABS: Absolute Neutrophil Count 3.7 X10^3/uL (2.0-7.7); Basophil# 0.06 X10^3/uL; Basophil% 1.1 % (0-1); Eosinophils% 1.9 % (0-5); Hematocrit 44.3 % (37-47); Hemoglobin 13.9 g/dL (12.0-15.0); Lymphocyte % 16.7 % (19-41); Mean Corp Hgb Conc 31.4 g/dL (32-36); Mean Corpuscular Hgb 28.7 pg (27.0-32.0); Mean Corpuscular Volume 91.5 fL (81-99); Mean Platelet Vol. 9.2 fl (6.2-12.0); Monocyte# 0.61 X10^3/uL; Monocyte% 11.3 % (0-10); NRBC Flagged by Analyzer 0 % (0-5); Neutrophil % 68.8 % (47-70); Platelet Count 164 K/mm3 (150-450); RBC Distribution Width CV 13.2 % (11.6-14.6); Red Blood Count 4.84 M/mm3 (4.2-5.4); White Blood Count 5.4 K/mm3 (4.4-11.0)
[2024-01-04 14:45] LABS: Anion Gap 0 (5-15); BUN 17 mg/dL (7-18); BUN/Creat Ratio 21.3 RATIO (10-20); Chloride 110 mmol/L (98-107); EST Glomerular Filtration Rate 73 mL/min (>60); Est Glom Filt Rate - Afr Amer 89 mL/min (>60); Glucose 97 mg/dL (74-106); Potassium 4.2 mmol/L (3.5-5.1); Sodium Level 141 mmol/L (136-145)
[2024-01-04 15:19] LABS: International Normalized Ratio 3.1; Prothrombin Time (Protime)PT. 31.6 SECONDS (11.7-14.9)
== END | disposition home or self-care (01) ==
PROVIDERS: Nurse Practitioner Family; PCP Internal Medicine; Referring Provider Internal Medicine Cardiovascular Disease; Visit Provider Internal Medicine Cardiovascular Disease
DX: I48.91 Unspecified atrial fibrillation (principal); Z79.01 Long term (current) use of anticoagulants; E87.5 Hyperkalemia
CPT/HCPCS: 36415; 80048; 85025; 85610

== ENCOUNTER 2024-01-31 15:13 | Outpatient (RCR) | payer MEDICARE, SELFPAY ==
[2023-12-23 22:09] VITALS: BMI 29.1
[2024-01-31 16:35] LABS: International Normalized Ratio 3.5; Prothrombin Time (Protime)PT. 34.6 SECONDS (11.7-14.9)
[2024-01-31 16:43] LABS: Anion Gap 3 (5-15); BUN 23 mg/dL (7-18); BUN/Creat Ratio 22.8 RATIO (10-20); Chloride 109 mmol/L (98-107); Creatinine, Serum 1.01 mg/dL (0.55-1.02); EST Glomerular Filtration Rate 56 mL/min (>60); Est Glom Filt Rate - Afr Amer 68 mL/min (>60); Glucose 83 mg/dL (74-106); Potassium 4.4 mmol/L (3.5-5.1); Sodium Level 141 mmol/L (136-145)
== END 2024-02-23 18:00 | disposition home or self-care (01) ==
LOC: LAB 15:13
PROVIDERS: Internal Medicine Cardiovascular Disease; Family Provider Family Medicine; PCP Internal Medicine; Referring Provider Internal Medicine Cardiovascular Disease; Visit Provider Internal Medicine Cardiovascular Disease
DX: Z79.01 Long term (current) use of anticoagulants (principal); I48.91 Unspecified atrial fibrillation
CPT/HCPCS: 36415; 80048; 85610

== ENCOUNTER 2024-03-04 15:59 | Outpatient (RCR) | payer MEDICARE, SELFPAY ==
[2024-02-26 09:23] VITALS: BMI 29.1
== END 2024-03-04 18:00 | disposition home or self-care (01) ==
LOC: LAB 15:59
PROVIDERS: Family Provider Family Medicine; PCP Internal Medicine; Referring Provider Internal Medicine Cardiovascular Disease; Visit Provider Internal Medicine Cardiovascular Disease
DX: Z79.01 Long term (current) use of anticoagulants (principal); I48.91 Unspecified atrial fibrillation

== ENCOUNTER 2024-04-11 15:53 | Outpatient (RCR) | payer MEDICARE, SELFPAY ==
[2024-03-24 22:19] VITALS: BMI 29.1
[2024-04-11 16:11] LABS: INR Fingerstick 2.5; Prothrombin Time Fingerstick 25.8 SEC (11.7-14.9)
== END 2024-04-24 18:00 | disposition home or self-care (01) ==
LOC: LAB 15:53
PROVIDERS: Family Provider Family Medicine; PCP Internal Medicine; Referring Provider Internal Medicine Cardiovascular Disease; Visit Provider Internal Medicine Cardiovascular Disease
DX: Z79.01 Long term (current) use of anticoagulants (principal); I48.91 Unspecified atrial fibrillation; I48.19 Other persistent atrial fibrillation
CPT/HCPCS: 36416; 85610

== ENCOUNTER 2024-05-20 15:31 | Outpatient (RCR) | payer MEDICARE, SELFPAY ==
[2024-04-24 20:48] VITALS: BMI 29.1
[2024-05-20 15:52] LABS: INR Fingerstick 4.1
== END 2024-05-20 18:00 | disposition home or self-care (01) ==
LOC: LAB 15:31
PROVIDERS: Family Provider Family Medicine; PCP Internal Medicine; Referring Provider Internal Medicine Cardiovascular Disease; Visit Provider Internal Medicine Cardiovascular Disease
DX: Z79.01 Long term (current) use of anticoagulants (principal); I48.91 Unspecified atrial fibrillation
CPT/HCPCS: 36416; 85610

== ENCOUNTER 2024-06-07 15:03 | Outpatient (RCR) | payer MEDICARE, SELFPAY ==
[2024-05-26 03:49] VITALS: BMI 29.1
[2024-06-07 15:11] LABS: INR Fingerstick 2.5; Prothrombin Time Fingerstick 25.4 SEC (11.7-14.9)
== END 2024-06-07 18:00 | disposition home or self-care (01) ==
LOC: LAB 15:03
PROVIDERS: Family Provider Family Medicine; PCP Internal Medicine; Referring Provider Internal Medicine Cardiovascular Disease; Visit Provider Internal Medicine Cardiovascular Disease
DX: Z79.01 Long term (current) use of anticoagulants (principal); I48.91 Unspecified atrial fibrillation
CPT/HCPCS: 36416; 85610

== ENCOUNTER 2024-07-08 15:47 | Outpatient (RCR) | payer MEDICARE, SELFPAY ==
[2024-06-25 03:41] VITALS: BMI 29.1
[2024-07-24 12:15] LABS: INR Fingerstick 3.1; Prothrombin Time Fingerstick 30.7 SEC (11.7-14.9)
== END 2024-07-08 18:00 | disposition home or self-care (01) ==
LOC: LAB 15:47
PROVIDERS: Family Provider Family Medicine; PCP Internal Medicine; Referring Provider Internal Medicine Cardiovascular Disease; Visit Provider Internal Medicine Cardiovascular Disease
DX: Z79.01 Long term (current) use of anticoagulants (principal); I48.91 Unspecified atrial fibrillation
CPT/HCPCS: 36416; 85610

== ENCOUNTER → 2024-07-22 | Outpatient (CLI) | payer MEDICARE, SELFPAY ==
--- NOTE | 2024-07-22 13:45 | RAD_ITS ---
INDICATION: Cough, SOB EXAMINATION/TECHNIQUE: X-RAY - XR Chest 2 Views COMPARISON: Prior study dated: 08/06/2021 FINDINGS: LINES/DEVICES: None. LUNGS: No consolidation, edema or effusion. No pneumothorax. MEDIASTINUM AND CARDIOVASCULAR STRUCTURES: Cardiac silhouette not enlarged. Central airways and mediastinal contour are unremarkable. BONES AND SOFT TISSUES: Stable soft tissues and osseous structures. RAD/Chest PA and Lateral IMPRESSION: No radiographic evidence of acute cardiopulmonary disease. Electronically Signed: Angel Morrell MD at 12:21 EDT ,
[2024-07-22 15:36] LABS: Absolute Lymphocyte Count 1.02 X10^3/uL (0.83-4.51); Absolute Neutrophil Count 3.7 X10^3/uL (2.0-7.7); Basophil# 0.04 X10^3/uL; Basophil% 0.7 % (0-1); Eosinophil# 0.12 X10^3/uL; Eosinophils% 2.2 % (0-5); Hematocrit 42.9 % (37-47); Hemoglobin 13.9 g/dL (12.0-15.0); Lymphocyte # 1.02 X10^3/ul (0.83-4.51); Lymphocyte % 18.4 % (19-41); Mean Corp Hgb Conc 32.4 g/dL (32-36); Mean Corpuscular Hgb 30.2 pg (27.0-32.0); Mean Corpuscular Volume 93.1 fL (81-99); Mean Platelet Vol. 9.7 fl (6.2-12.0); Monocyte# 0.69 X10^3/uL; Monocyte% 12.5 % (0-10); NRBC Flagged by Analyzer 0 % (0-5); Neutrophil # 3.65 X10^3/uL (2.7-7.7); Platelet Count 176 K/mm3 (150-450); RBC Distribution Width CV 13.1 % (11.6-14.6); RBC Distribution Width SD 44.5 fl (35.1-43.9); Red Blood Count 4.61 M/mm3 (4.2-5.4); White Blood Count 5.5 K/mm3 (4.4-11.0)
[2024-07-22 16:03] LABS: BNP,B-Type NATRIURETIC PEPTIDE 331.4 pg/mL (0-100)
[2024-07-22 16:05] LABS: Anion Gap 7 (5-15); BUN 28 mg/dL (7-18); BUN/Creat Ratio 26.2 RATIO (10-20); Calcium,Total 9.4 mg/dL (8.5-10.1); Chloride 109 mmol/L (98-107); Creatinine, Serum 1.07 mg/dL (0.55-1.02); EST Glomerular Filtration Rate 52 mL/min (>60); Est Glom Filt Rate - Afr Amer 63 mL/min (>60); Glucose 95 mg/dL (74-106); Potassium 4.9 mmol/L (3.5-5.1); Sodium Level 142 mmol/L (136-145)
== END | disposition home or self-care (01) ==
PROVIDERS: PCP Internal Medicine; Referring Provider Nurse Practitioner Family; Visit Provider Nurse Practitioner Family
DX: R06.02 Shortness of breath (principal); E87.5 Hyperkalemia
CPT/HCPCS: 36415; 71046; 80048; 83880; 85025

== ENCOUNTER 2024-08-08 15:54 | Outpatient (RCR) | payer MEDICARE, SELFPAY ==
[2024-07-25 20:39] VITALS: BMI 29.1
[2024-08-08 16:16] LABS: INR Fingerstick 2.3; Prothrombin Time Fingerstick 25.1 SEC (11.7-14.9)
== END 2024-08-24 18:00 | disposition home or self-care (01) ==
LOC: LAB 15:54
PROVIDERS: Family Provider Family Medicine; PCP Internal Medicine; Referring Provider Internal Medicine Cardiovascular Disease; Visit Provider Internal Medicine Cardiovascular Disease
DX: Z79.01 Long term (current) use of anticoagulants (principal); I48.91 Unspecified atrial fibrillation
CPT/HCPCS: 36416; 85610

== ENCOUNTER 2024-09-10 15:51 | Outpatient (RCR) | payer MEDICARE, SELFPAY ==
[2024-08-24 22:48] VITALS: BMI 29.1
[2024-09-10 16:00] LABS: INR Fingerstick 5.3; Prothrombin Time Fingerstick 51.1 SEC (11.7-14.9)
[2024-09-10 16:18] LABS: Prothrombin Time (Protime)PT. 54.4 SECONDS (11.7-14.9)
[2024-09-10 16:20] LABS: International Normalized Ratio 6.2
== END 2024-09-10 18:00 | disposition home or self-care (01) ==
LOC: LAB 15:51
PROVIDERS: Family Provider Family Medicine; PCP Internal Medicine; Referring Provider Internal Medicine Cardiovascular Disease; Visit Provider Internal Medicine Cardiovascular Disease
DX: Z79.01 Long term (current) use of anticoagulants (principal); I48.91 Unspecified atrial fibrillation
CPT/HCPCS: 36415; 36416; 85610

== ENCOUNTER 2024-09-27 15:19 | Outpatient (RCR) | payer MEDICARE, SELFPAY ==
[2024-09-25 04:14] VITALS: BMI 29.1
[2024-09-27 16:02] LABS: International Normalized Ratio 2.2; Prothrombin Time (Protime)PT. 24.5 SECONDS (11.7-14.9)
== END 2024-09-27 18:00 | disposition home or self-care (01) ==
LOC: LAB 15:19
PROVIDERS: Family Provider Family Medicine; PCP Internal Medicine; Referring Provider Internal Medicine Cardiovascular Disease; Visit Provider Internal Medicine Cardiovascular Disease
DX: Z79.01 Long term (current) use of anticoagulants (principal); I48.91 Unspecified atrial fibrillation
CPT/HCPCS: 36415; 85610

== ENCOUNTER 2024-10-29 11:56 | Outpatient (RCR) | payer MEDICARE, SELFPAY ==
[2024-10-25 23:15] VITALS: BMI 29.1
[2024-10-29 12:09] LABS: Prothrombin Time Fingerstick 30.2 SEC (11.7-14.9)
== END 2024-11-22 18:00 | disposition home or self-care (01) ==
LOC: LAB 11:56
PROVIDERS: Family Provider Family Medicine; PCP Internal Medicine; Referring Provider Internal Medicine Cardiovascular Disease; Visit Provider Internal Medicine Cardiovascular Disease
DX: Z79.01 Long term (current) use of anticoagulants (principal); I48.91 Unspecified atrial fibrillation
CPT/HCPCS: 36416; 85610

== ENCOUNTER 2024-12-06 15:56 | Outpatient (RCR) | payer MEDICARE, SELFPAY ==
[2024-11-23 03:54] VITALS: BMI 29.1
[2024-12-06 16:04] LABS: INR Fingerstick 2.4; Prothrombin Time Fingerstick 25.6 SEC (11.7-14.9)
== END 2024-12-06 18:00 | disposition home or self-care (01) ==
LOC: LAB 15:56
PROVIDERS: Family Provider Family Medicine; PCP Internal Medicine; Referring Provider Internal Medicine Cardiovascular Disease; Visit Provider Internal Medicine Cardiovascular Disease
DX: Z79.01 Long term (current) use of anticoagulants (principal); I48.91 Unspecified atrial fibrillation
CPT/HCPCS: 36416; 85610

== ENCOUNTER 2025-01-15 12:38 | Outpatient (RCR) | payer MEDICARE, SELFPAY ==
[2024-12-23 21:58] VITALS: BMI 29.1
[2025-01-15 12:46] LABS: Prothrombin Time Fingerstick 22.5 SEC (11.7-14.9)
== END 2025-01-22 18:00 | disposition home or self-care (01) ==
LOC: LAB 12:38
PROVIDERS: Family Provider Family Medicine; PCP Internal Medicine; Referring Provider Internal Medicine Cardiovascular Disease; Visit Provider Internal Medicine Cardiovascular Disease
DX: Z79.01 Long term (current) use of anticoagulants (principal); I48.19 Other persistent atrial fibrillation
CPT/HCPCS: 36416; 85610

== ENCOUNTER 2025-02-14 14:30 | Outpatient (RCR) | payer MEDICARE, SELFPAY ==
[2025-01-22 20:47] VITALS: BMI 29.1
[2025-02-14 14:44] LABS: INR Fingerstick 1.6; Prothrombin Time Fingerstick 18.2 SEC (11.7-14.9)
== END 2025-02-14 18:00 | disposition home or self-care (01) ==
LOC: LAB 14:30
PROVIDERS: Family Provider Family Medicine; PCP Internal Medicine; Referring Provider Internal Medicine Cardiovascular Disease; Visit Provider Internal Medicine Cardiovascular Disease
DX: Z79.01 Long term (current) use of anticoagulants (principal); I48.91 Unspecified atrial fibrillation
CPT/HCPCS: 36416; 85610

== ENCOUNTER 2025-03-20 16:10 | Outpatient (RCR) | payer MEDICARE, SELFPAY ==
[2025-02-22 20:51] VITALS: BMI 29.1
== END 2025-03-20 18:00 | disposition home or self-care (01) ==
LOC: LAB 16:10
PROVIDERS: Family Provider Family Medicine; PCP Internal Medicine; Referring Provider Internal Medicine Cardiovascular Disease; Visit Provider Internal Medicine Cardiovascular Disease
DX: Z79.01 Long term (current) use of anticoagulants (principal); I48.91 Unspecified atrial fibrillation
CPT/HCPCS: 36416; 85610

== ENCOUNTER 2025-04-30 11:40 | Outpatient (RCR) | payer MEDICARE, SELFPAY ==
[2025-04-30 11:50] LABS: INR Fingerstick 2.7
== END 2025-04-30 18:00 | disposition home or self-care (01) ==
LOC: LAB 11:40
PROVIDERS: Family Provider Family Medicine; PCP Internal Medicine; Referring Provider Internal Medicine Cardiovascular Disease; Visit Provider Internal Medicine Cardiovascular Disease
DX: Z79.01 Long term (current) use of anticoagulants (principal); I48.91 Unspecified atrial fibrillation
CPT/HCPCS: 36416; 85610

== ENCOUNTER 2025-06-24 13:48 | Outpatient (RCR) | payer MEDICARE, SELFPAY ==
[2025-06-24 14:00] LABS: INR Fingerstick 3.3
== END 2025-06-24 18:00 | disposition home or self-care (01) ==
LOC: LAB 13:48
PROVIDERS: Family Provider Family Medicine; PCP Internal Medicine; Referring Provider Internal Medicine Cardiovascular Disease; Visit Provider Internal Medicine Cardiovascular Disease
DX: Z79.01 Long term (current) use of anticoagulants (principal); I48.91 Unspecified atrial fibrillation
CPT/HCPCS: 36416; 85610

== ENCOUNTER 2025-07-07 15:08 | Outpatient (RCR) | payer MEDICARE, SELFPAY ==
[2025-07-07 16:38] LABS: Pro- Brain NATRIURETIC PEPTIDE 712 pg/mL (<=1800)
[2025-07-07 17:24] LABS: Prothrombin Time (Protime)PT. 34.4 SECONDS (11.7-14.9)
== END 2025-07-07 18:00 | disposition home or self-care (01) ==
LOC: LAB 15:08
PROVIDERS: Family Provider Family Medicine; PCP Internal Medicine; Referring Provider Nurse Practitioner Family; Visit Provider Internal Medicine Cardiovascular Disease
DX: Z79.01 Long term (current) use of anticoagulants (principal); R06.02 Shortness of breath; R05.3 Chronic cough; I50.32 Chronic diastolic (congestive) heart failure; I48.19 Other persistent atrial fibrillation
CPT/HCPCS: 36415; 83880; 85610

== ENCOUNTER 2025-08-08 15:55 | Outpatient (RCR) | payer MEDICARE, SELFPAY ==
[2025-08-08 16:13] LABS: INR Fingerstick 2.2
== END 2025-08-23 18:00 | disposition home or self-care (01) ==
LOC: LAB 15:55
PROVIDERS: Family Provider Family Medicine; PCP Internal Medicine; Referring Provider Nurse Practitioner Family; Visit Provider Internal Medicine Cardiovascular Disease
DX: I48.19 Other persistent atrial fibrillation (principal); Z79.01 Long term (current) use of anticoagulants
CPT/HCPCS: 36416; 85610

== ENCOUNTER 2025-09-15 16:11 | Outpatient (RCR) | payer MEDICARE, SELFPAY ==
[2025-09-15 16:27] LABS: INR Fingerstick 2.6
== END 2025-09-15 18:00 | disposition home or self-care (01) ==
LOC: LAB 16:11
PROVIDERS: Family Provider Family Medicine; PCP Internal Medicine; Referring Provider Nurse Practitioner Family; Visit Provider Internal Medicine Cardiovascular Disease
DX: I48.19 Other persistent atrial fibrillation (principal); Z79.01 Long term (current) use of anticoagulants
CPT/HCPCS: 36416; 85610